=== PATIENT | female | born 1960 | race Caucasian/White ===

== ENCOUNTER 2019-01-01 12:16 | Inpatient (IN) ==
[2019-01-01] MEDS ORDERED: DUONEB (A & A) INH ONE (12:36)
[2019-01-01] MEDS ORDERED: SOLU-MEDROL IV ONE (12:36)
--- NOTE | 2019-01-01 12:52 | Diag Imaging Result Doc PS360 ---
EXAM: CHEST-2 VIEWS 01/01/2019 HISTORY: SOB TECHNIQUE: PA and lateral chest COMMENT: There is increased interstitial opacity bilaterally compared to 09/14/2018. The pulmonary vascularity is also apparently increased. There are bilateral pleural effusions. IMPRESSION: Pulmonary edema and effusions. Electronically signed by Mariusz Melgar 01/01/2019 12:50 PM
[2019-01-01] MEDS ORDERED: LASIX IV ONE (12:54)
[2019-01-01 13:00] LABS: BILIRUBIN URINE NEGATIVE (NEGATIVE); BLOOD URINE NEGATIVE (NEGATIVE); CLARITY CLEAR (CLEAR); COLOR YELLOW; KETONE URINE NEGATIVE (NEGATIVE); LEUKOCYTES URINE NEGATIVE (NEGATIVE); NITRITE URINE NEGATIVE (NEGATIVE); PROTEIN URINE NEGATIVE (NEGATIVE); SP GRAVITY URINE 1.005; UROBILINOGEN URINE NORMAL
[2019-01-01 13:03] LABS: BLOOD TYPE ARTERIAL; SAMPLE BLOOD
[2019-01-01 13:03] LABS: URINE EPITHELIAL CELLS >10 /HPF (<10); URINE SOURCE CLEAN CATCH
[2019-01-01 13:04] LABS: BE 5.2 mmoll (-3.0-3.0); HCO3-(ACT) 28.9 mmoll (20.0-26.0); METHB 0.8 % (0.0-1.5); O2HB 95.8 % (95.0-99.0); PO2(98.6) 100 mmHg (60-100); SAO2 99.3 % (95.0-100.0); pH(98.6) 7.39 (7.35-7.45)
[2019-01-01 13:06] LABS: ALLEN TEST YES; MODALITY CANNULA; PCO2(98.6) 52 mmHg (35-45)
[2019-01-01 14:17] LABS: AGAP 9; CHLORIDE 98 mmol/L (98-107); GLUCOSE 218 mg/dL (70-104); POTASSIUM 4.3 mmol/L (3.5-5.1); SODIUM 139 mmol/L (136-145); TCO2 32 mmol/L (25-35)
[2019-01-01 14:18] LABS: ALBUMIN 3.8 g/dL (3.5-5.0); ALKALINE PHOSPHATASE 72 U/L (32-104); BUN 6 mg/dL (8-22); CALCIUM 9.2 mg/dL (8.8-10.2); COSMO 282; CREATININE 0.5 mg/dL (0.5-0.9); ESTIMATED GFR > 60; GOT 18 U/L (10-30); GPT 15 U/L (10-36); MAGNESIUM 1.4 mg/dL (1.5-2.7); TOTAL PROTEIN 6.5 g/dL (6.3-8.3)
--- NOTE | 2019-01-01 14:37 | EKG Report ---
Test Performed on : 01/01/2019 1:58:19 PM Test Reason : sob Blood Pressure : / mmHG Vent. Rate : 082 BPM Atrial Rate : 082 BPM P-R Int : 174 ms QRS Dur : 086 ms QT Int : 382 ms P-R-T Axes : 035 000 047 degrees QTc Int : 446 ms Normal sinus rhythm. Possible Left atrial enlargement Low voltage QRS Borderline ECG When compared with ECG of 14-SEP-2018 11:36, QRS axis shifted right Criteria for Anterior infarct are no longer present Unconfirmed Result
[2019-01-01 15:13] LABS: BASO# 0.02 X1000 (0.0-0.2); BASO% 0.3 % (0.0-0.8); EOS# 0.29 X1000 (0.0-0.7); EOS% 4.8 % (0.0-10.0); HEMATOCRIT 40.1 % (37.0-47.0); HEMOGLOBIN 13.1 g/dL (12.0-16.0); IMM GRAN# 0.02 X1000 (0.0-0.04); IMM GRAN% 0.3 % (0.0-0.5); LYMPH# 1.27 X1000 (1.2-3.4); MCHC 32.7 g/dL (33-37); MCV 85.7 FL (81-99); MONO% 6.6 % (1.7-9.3); MPV 9.5 FL (7.4-10.4); NEUT# 4.04 X1000 (1.4-6.5); PLT 256 X1000 (130-400); RBC 4.68 XMIL (4.2-5.4); RDW 14.7 % (11.5-14.5); WBC 6.04 X1000 (4.8-10.8)
--- NOTE | 2019-01-01 16:18 | PROVIDER DOCUMENTATION ---
This chart was entered by Lola Park Scribe, acting as scribe for Vaughn Harper CRNP. HPI-Respiratory General - General Chief Complaint: Shortness of Breath Stated Complaint: SOB / COUGH / CONGESTION Time Seen by Provider: 01/01/19 12:20 Source: patient Allergies/Adverse Reactions: Patient Allergies Allergy/AdvReac Type Severity Reaction Status Date / Time doxycycline Allergy Intermediate NAUSEA/VOMI Verified 06/07/18 07:59 TING nitrofurantoin Allergy Intermediate HIVES Verified 06/07/18 07:59 macrocrystalline * [From Macrodantin] adhesive Allergy RASH Verified 06/07/18 07:59 Home Medications: Home Medication List Medication Instructions Recorded Confirmed Last Taken Type Gabapentin [Neurontin] 600 mg PO TID 04/29/12 09/14/18 01/03/18 History Meclizine HCl [Antivert] 25 mg PO BID 04/29/12 09/14/18 01/03/18 History Metformin [Glucophage] 1,000 mg PO BID 04/29/12 09/14/18 01/03/18 History Omeprazole [Prilosec] 40 mg PO DAILY 04/29/12 09/14/18 01/03/18 History Amitriptyline [Elavil] 50 mg PO HS 04/13/16 09/14/18 01/03/18 History Lorazepam 2 mg PO PRN PRN 05/18/17 09/14/18 Unknown History Diltiazem HCl [Cartia Xt] 300 mg PO DAILY 08/22/17 09/14/18 01/03/18 History Fenofibrate 160 mg PO DAILY 10/15/17 09/14/18 01/03/18 History Albuterol Sulfate [Albuterol 8.5 gm IH Q4-6H PRN PRN #1 01/03/18 09/14/18 Unknown Rx Sulfate Hfa] hfa.aer.ad Aspirin 81 mg PO DAILY 09/14/18 09/14/18 Unknown History Cholecalciferol (Vitamin D3) 5,000 unit PO DAILY 09/14/18 09/14/18 Unknown His tory [Vitamin D3] Fluticasone/Umeclidin/Vilanter 1 ea INHALATION DAILY 09/14/18 09/14/18 Unknown History [Trelegy Ellipta 100-62.5-25] Furosemide [Lasix] 40 mg PO PRN PRN 09/14/18 09/14/18 Unknown History Glipizide [Glipizide Xl] 5 mg PO DAILY 09/14/18 09/14/18 Unknown History Hydrocodone Bit/Acetaminophen 1 ea PO TID 09/14/18 09/14/18 Unknown History [Hydrocodon-Acetaminophn 10-325] Insulin Human NPH [Humulin N] 60 unit SUBQ WBREAKFAST 09/14/18 09/14/18 Unknown History LISINOpril [Prinivil] 20 mg PO DAILY 09/14/18 09/14/18 Unknown History Paroxetine [Paxil] 20 mg PO DAILY 09/14/18 09/14/18 Unknown History Azithromycin 250 mg PO DAILY #4 tab 09/16/18 Unknown Rx CefDINIR [Omnicef] 300 mg PO BID #10 cap 09/16/18 Unknown Rx Insulin Glargine,Hum.rec.anlog 18 unit SQ HS #0 09/16/18 09/14/18 Unknown Rx [Lantus Solostar] - History of Present Illness-Resp Nature of Presenting Problem: 58yof presents to ED cc SOB, cough and congestion for last 3 days that is getting worse even though she is on 2liters of home o2. Pt reports she called her son in law this morning b/c her o2 dropped to 78% going from bed to bathroom even on 2liters. Pt o2 was 93% on 2liters upon arrival in ED and then when she went to bathroom and got back to bed it was 85%. Pt has hx of COPD. Quality of Pain: reports: tightness Severity in ED: reports: moderate Onset/Duration: reports: 3 days ago Timing: reports: still present, getting worse Cough Quality/Degree: reports: moderate Episode Frequency: chronic episodes Current Respiratory Medication Therapy: Initiated see nurses note Modifying Factors: worse with: exertion, coughing Associated Symptoms: reports: cough, shortness of breath, short of breath, wheezing Similar Symptoms Previously?: Yes Recently seen or treated by another doctor?: No Review of Systems - Adult - REVIEW OF SYSTEMS - ADULT Constitutional: reports: see jessica CALDERA. denies: chills, fever Eyes: reports: no symptoms reported Ears, Nose, Mouth & Throat: reports: no symptoms reported Cardiovascular: reports: see HPI. denies: chest pain, irregular heart rate, palpitations Respiratory: reports: see HPI, cough, shortness of breath, wheezing, other (congestion). denies: hemoptysis, pleurisy Gastrointestinal: reports: no symptoms reported Genitourinary: reports: no symptoms reported Musculoskeletal: reports: no symptoms reported Integumentary: reports: no symptoms reported Neurological: reports: no symptoms reported Psychiatric: reports: no symptoms reported Endocrine: reports: no symptoms reported Hematologic/Lymphatic: reports: no symptoms reported Allergic/Immunologic: reports: no symptoms reported All Other Systems: Reviewed and Negative Past History - Adult - PAST MEDICAL HISTORY-ADULT Review of Records: reports: Nursing Assessment Review, Medications Reviewed, Social history reviewed & non-contributory. Major Childhood Illnesses: reports: denies history Cardiovascular: reports: CAD, HTN, hyperlipidemia, other (dystolic dysfunction) Respiratory: reports: asthma, COPD, pneumonia, sleep apnea Gastrointestinal: reports: denies history, GERD Obstetrical/Gynecological: reports: denies history Genitourinary: reports: kidney stones Musculoskeletal: reports: denies history, chronic pain, other (neuropathy) Neurological: reports: denies history Psychiatric: reports: anxiety, depression Endocrine/Immune: reports: anemia, Diabetes Other Conditions: reports: MRSA, other (vertigo) - PRIOR SURGERIES/PROCEDURES Surgical/Procedure History: reports: cholecystectomy, BTL, tonsillectomy, back/neck - PRIOR HOSPITALIZATIONS Prior Hospitalizations: reports: none - IMMUNIZATION STATUS Childhood Immunizations: See Nurse Assessment Flu Vaccine: See Nurse Assessment - FAMILY HISTORY Family History: reviewed, not pertinent Physical Exam-General - PHYSICAL EXAM-ADULT Initial Vital Signs Reviewed: Yes - CONSTITUTIONAL General Appearance: appears well, alert, mild distress - EYES Eyes: PERRL/EOMI, pink conjunctivae. negative: meningismus, pale conjunctivae, photophobia - HEAD, EARS, NOSE, MOUTH & THROAT HENMT: normocephalic/atraumatic, moist mucous membranes, normal ENT inspection. negative: angioedema, hearing deficit - NECK Neck: non-tender, full range of motion, supple, normal inspection. negative: C- spine tenderness - RESPIRATORY Respiratory: chest non-tender, no pleuratic chest pain, no respiratory distress, no accessory muscle use, decreased breath sounds (at bases, bilateral), wheezing (inspiratory adn expiratory). negative: lungs clear, normal breath sounds, crackles, rales, rhonchi, stridor - CARDIOVASCULAR Cardiovascular: normal peripheral pulses, regular rate, rhythm, no edema, no gallop, no JVD, no murmur. 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 negative: facial droop, focal weakness, motor weakness, sensory deficit - PSYCHIATRIC Psych/Mental Status: normal mood/affect, normal thought content, normal thought process, oriented x 3. negative: disoriented x 3, anxious, disheveled, depressed affect Progress - PLAN OF CARE/RESULTS Progress/Plan/Lab Results: Vital Signs - 8 hr 01/01/19 12:21 01/01/19 13:08 01/01/19 14:44 Temperature 98.3 F Pulse Rate 84 88 78 Respiratory Rate 18 22 18 Blood Pressure 118/66 121/69 O2 Sat by Pulse Oximetry 93 L 98 95 01/01/19 16:10 Temperature Pulse Rate 81 Respiratory Rate 19 Blood Pressure 148/69 O2 Sat by Pulse Oximetry 94 L Laboratory Results - last 24 hr 01/01/19 01/01/19 01/01/19 12:45 12:46 13:30 WBC RBC Hgb Hct MCV MCH MCHC RDW Std Deviation Plt Count MPV Immature Gran % (Auto) Neut % (Auto) Lymph % (Auto) [place] % (Auto) Eos % (Auto) Baso % (Auto) Immature Gran # (Auto) Neut # (Auto) Lymph # (Auto) Waldo # (Auto) Eos # (Auto) Baso # (Auto) Specimen Type ARTERIAL Sample Site R RADIAL pH 7.39 pCO2 52 H* pO2 100 HCO3 28.9 H Base Excess 5.2 H Oxyhemoglobin 95.8 ABG O2 Sat (Calculated) 19.0 ABG O2 Saturation 99.3 ABG Carboxyhemoglobin 2.70 H ABG Methemoglobin 0.8 Ron Test YES A-a O2 Difference 92.0 Total Hemoglobin 14.0 Liter Flow 4.0 Blood Gas Modality CANNULA FiO2 % 36.0 Sodium Potassium Chloride Carbon Dioxide Anion Gap BUN Creatinine Estimated GFR/1.73 m2 BUN/Creatinine Ratio Glucose Calculated Osmolality Calcium Phosphorus 3.0 Magnesium Total Bilirubin AST ALT Alkaline Phosphatase Creatine Kinase 52 Troponin T Kkx-V-[place] Pept Total Protein Albumin Globulin Albumin/Globulin Ratio Plasma Lactate Urine Source CLEAN CATCH Urine Color YELLOW Urine Clarity CLEAR Urine pH 8.0 Ur Specific [place] 1.005 Urine Protein NEGATIVE Urine Ketones NEGATIVE Urine Blood NEGATIVE Urine Nitrite NEGATIVE Urine Bilirubin NEGATIVE Urine Urobilinogen NORMAL Urine Microscopic RBC Not Reportable Urine WBC NEGATIVE Ur Epithelial Cells >10 A Urine Glucose TRACE(50 mg/dL) A 01/01/19 01/01/19 01/01/19 13:30 13:30 13:30 WBC 6.04 RBC 4.68 Hgb 13.1 Hct 40.1 MCV 85.7 MCH 28.0 MCHC 32.7 L RDW Std Deviation 14.7 H Plt Count 256 MPV 9.5 Immature Gran % (Auto) 0.3 Neut % (Auto) 67.0 Lymph % (Auto) 21.0 Waldo % (Auto) 6.6 Eos % (Auto) 4.8 Baso % (Auto) 0.3 Immature Gran # (Auto) 0.02 Neut # (Auto) 4.04 Lymph # (Auto) 1.27 Waldo # (Auto) 0.40 Eos # (Auto) 0.29 Baso # (Auto) 0.02 Specimen Type Sample Site pH pCO2 pO2 HCO3 Base Excess Oxyhemoglobin ABG O2 Sat (Calculated) ABG O2 Saturation ABG Carboxyhemoglobin ABG Methemoglobin Ron Test A-a O2 Difference Total Hemoglobin Liter Flow Blood Gas Modality FiO2 % Sodium 139 Potassium 4.3 Chloride 98 Carbon Dioxide 32 Anion Gap 9 BUN 6 L Creatinine 0.5 Estimated GFR/1.73 m2 > 60 BUN/Creatinine Ratio 12 Glucose 218 H Calculated Osmolality 282 Calcium 9.2 Phosphorus Magnesium 1.4 L Total Bilirubin 0.80 AST 18 ALT 15 Alkaline Phosphatase 72 Creatine Kinase Troponin T < 0.010 Tfw-G-[place] Pept Total Protein 6.5 Albumin 3.8 Globulin 3.0 Albumin/Globulin Ratio 1.0 Plasma Lactate Urine Source Urine Color Urine Clarity Urine pH Ur Specific [place] Urine Protein Urine Ketones Urine Blood Urine Nitrite Urine Bilirubin Urine Urobilinogen Urine Microscopic RBC Urine WBC Ur Epithelial Cells Urine Glucose 01/01/19 01/01/19 13:30 13:30 WBC RBC Hgb Hct MCV MCH MCHC RDW Std Deviation Plt Count MPV Immature Gran % (Auto) Neut % (Auto) Lymph % (Auto) [place] % (Auto) Eos % (Auto) Baso % (Auto) Immature Gran # (Auto) Neut # (Auto) Lymph # (Auto) Waldo # (Auto) Eos # (Auto) Baso # (Auto) Specimen Type Sample Site pH pCO2 pO2 HCO3 Base Excess Oxyhemoglobin ABG O2 Sat (Calculated) ABG O2 Saturation ABG Carboxyhemoglobin ABG Methemoglobin Ron Test A-a O2 Difference Total Hemoglobin Liter Flow Blood Gas Modality FiO2 % Sodium Potassium Chloride Carbon Dioxide Anion Gap BUN Creatinine Estimated GFR/1.73 m2 BUN/Creatinine Ratio Glucose Calculated Osmolality Calcium Phosphorus Magnesium Total Bilirubin AST ALT Alkaline Phosphatase Creatine Kinase Troponin T Ahk-I-Xbdutetyhzs Pept 365 H Total Protein Albumin Globulin Albumin/Globulin Ratio Plasma Lactate 1.7 Urine Source Urine Color Urine Clarity Urine pH Ur Specific [place] Urine Protein Urine Ketones Urine Blood Urine Nitrite Urine Bilirubin Urine Urobilinogen Urine Microscopic RBC Urine WBC Ur Epithelial Cells Urine Glucose Orders Category Date Time Status Saline Loc NOW Care 01/01/19 12:36 Active CHEST-2 VIEWS [RAD] Stat Exams 01/01/19 12:36 Completed ABG [RESP] Routine Lab 01/01/19 12:46 Completed BNP [PRO B-NATRIURETIC PEPTIDE] Stat Lab 01/01/19 13:30 Completed CBC WITH DIFF [HEME] Stat Lab 01/01/19 13:30 Completed CK PROFILE [SP CHEM] Stat Lab 01/01/19 13:30 Completed COMPREHENSIVE METABOLIC PANEL [CHEM] Stat Lab 01/01/19 13:30 Completed LACTATE, PLASMA [CHEM] Stat Lab 01/01/19 13:30 Completed MAGNESIUM [CHEM] Stat Lab 01/01/19 13:30 Completed PHOSPHORUS [CHEM] Stat Lab 01/01/19 13:30 Completed TROPONIN T Stat Lab 01/01/19 13:30 Completed UA NIMS W/REFLEX CULT PL [URINALYSIS] Stat Lab 01/01/19 12:45 Completed Albuterol 2.5MG/Ipratrop 0.5MG [Duoneb (A & A)] Med 01/01/19 12:36 Discontinued 3 ml INH NOW ONE Furosemide [Lasix] Med 01/01/19 12:54 Discontinued 60 mg IV NOW ONE Methylprednisolone Sod Succ [Solu-Medrol] Med 01/01/19 12:36 Discontinued 40 mg IV NOW ONE Aerosol Treatments Routine Oth 01/01/19 12:37 Active Aerosol Treatments Stat Oth 01/01/19 12:37 Active EKG [EKG] Stat Ther 01/01/19 12:36 Draft Transfer/Admit Order [TRANSFER] Routine Transfer 01/01/19 16:12 Ordered Result Diagrams: 01/01/19 13:30 01/01/19 13:30 - EKG 1 Time of EKG reading by physician:: 14:28 EKG Interpretation (*Must complete 3 of following elements*): Abnormal (possible left atrial enlargement) Rate: 82 Rhythm: normal sinus Energy: normal QRS: other (low voltage) - XRAY 1 XRAY: Bilateral XRAY Study: Chest Impression: See EMR Report (IMPRESSION: Pulmonary edema and effusions. Electro nically signed by Mariusz Melgar 01/01/2019 12:50 PM) - CONSULTS/PCP/HOSPITALIST Notification #1 *Consult/PCP/Hospitalist*: Dr Martinez Time Discussed: 16:12 Reason/Comments: COPD exacerbation Consult Disposition: Admit Departure - Departure Date of Disposition Decision: 01/01/19 Time of Disposition Decision: 16:17 DIAGNOSIS: COPD exacerbation Disposition: ADMITTED INPATIENT 09 Certified Medical Emergency: Emergent Condition: Critical Additional Freetext Instructions: ED Follow Up Instructions: You have been treated by a care provider in the Emergency Department. These instructions are being provided to you so you can have an understanding of how to care for yourself upon discharge. Upon discharge from the Emergency Department, you are responsible for making arrangements for follow-up care by a physician of your choice. Take all prescribed medications as directed. Return to the Emergency Department immediately for any new or worsening symptoms. You may call the Physician Referral phone number at [phone] to obtain a list of Physicians who are taking new patients. Referrals and Follow-Ups: Jazmyn Trivedi CRNP [Primary Care Provider] - - Critical Care Note This patient required my direct & personal management of CC.: No Attestation - Physician/ DEBBIE Attestation Patient care was provided by Advanced Practice Provider:: Yes Advanced Practice Provider:: Vaughn Harper Advanced Practice Provider documentation review:: The Mid-level provider documentation, treatment plan and medical decision making was reviewed by the physician who agrees with all treatment and medical decision making by the MLP. The physician spent face to face time with patient:: No Advanced Practice Provider documentation review:: Supervising physician onsite and consulted in the evaluation and care of this patient. The physician did not have a face to face encounter with the patient. This chart was documented by the indicated scribe, (Lola Park, [place]) and accurately reflects the services I performed and decisions made by , Vaughn Harper CRNP, as attested by the provider's signature.
[2019-01-01] MEDS ORDERED: MAGNESIUM SULFATE 2 GM/S.W.I. 2 GM/50 ML IVPB IV ONE (19:37)
[2019-01-01] MEDS ORDERED: DUONEB (A & A) INH PRN (19:42)
[2019-01-01] MEDS: ATIVAN PO SCH (20:18)
[2019-01-01] MEDS: ELAVIL PO SCH (20:18)
[2019-01-01] MEDS: NORCO-10 PO SCH (20:19)
[2019-01-01] MEDS: ANTIVERT PO SCH (20:19)
[2019-01-01] MEDS: SOLU-MEDROL IV SCH (20:19)
[2019-01-01] MEDS: PAXIL PO SCH (20:19)
[2019-01-01] MEDS: LASIX IV SCH (20:20)
[2019-01-01] MEDS: LANTUS INSULIN SUBQ SCH (20:20)
--- NOTE | 2019-01-01 20:44 | HISTORY AND PHYSICAL ---
CHIEF COMPLAINT: Shortness of breath. HISTORY OF PRESENT ILLNESS: This is a 58-year-old female with history of COPD. She may have cor pulmonale too, but she has been having worsening shortness of breath for the last several days, also increasing cough productive of green sputum. No fevers. Positive chills. She has had increase in swelling in her legs. She has baseline orthopnea. She does not sleep lying flat, so it is really hard to tell if that is a change. She reports chest tightness with her cough and shortness of breath and increasing congestion. There are no sick contacts clearly. At baseline, I do not know how ambulatory she is, and she is on 2 L continuously. Workup in the ER was consistent with at least a COPD exacerbation, but there was also concern over CHF exacerbation, because she had pulmonary vasculature, increased pleural effusions, pulmonary edema. The patient was evaluated and admitted for treatment. Reportedly also very hypoxic. Her saturations were 78%, even on her 2 L, and she only recovered to about 85%. PAST MEDICAL HISTORY: 1. Type 2 diabetes. 2. COPD. 3. Dyslipidemia. 4. Hypertension. 5. Hypertriglyceridemia. 6. Peripheral neuropathy. 7. Anxiety/depression. 8. GERD. PAST SURGICAL HISTORY: 1. She reports neck surgery. 2. Back surgery. 3. Tonsillectomy and adenoidectomy. 4. Cholecystectomy. 5. Left shoulder surgery. FAMILY HISTORY: Positive for hypertension and CAD in her father, at 70. He had lung cancer. Mother had CAD, at 62. Daughter had ovarian cancer, also in her 30s. Sister with breast cancer. One other brother with COPD. Sister also with COPD. ALLERGIES: Doxycycline, Macrobid, and adhesive tape. SOCIAL HISTORY: No smoking for the last 6 years. She was a 3 pack a day smoker for 10 years, probably at least a pack a day smoker for 20 years. I am going to say again, at least 30 pack year history of smoking. MEDICATIONS: 1. Elavil 50 at bedtime. 2. Fenofibrate 160 daily. 3. Glipizide 5 daily. 4. Glucophage 1 g b.i.d. 5. NPH 60 with breakfast. 6. [place] p.r.n. 7. Glargine 37 at night. 8. Lasix p.r.n. 9. Ativan 2 at bedtime. 10. Neurontin 600 t.i.d. 11. Paxil 20 at bedtime. 12. Prilosec 40 daily. 13. Lisinopril 20 daily. 14. Trilogy Ellipta 162.5/25 daily. 15. Vitamin D3 daily. 16. Zanaflex 4 t.i.d. 17. Albuterol. REVIEW OF SYSTEMS: Otherwise negative times a 10 point review of systems. PHYSICAL EXAMINATION: VITAL SIGNS: Blood pressure is 137/57, heart rate of 85, respiratory rate is 21, temperature 98.6 degrees, 100% on 3.5 L. GENERAL: Obese female in moderate respiratory distress, sitting up in chair. EYES: Pupils equal, round, reactive to light. She has glasses, corrective lenses on. Sclerae are anicteric. Extraocular movements are intact. EARS, NOSE, THROAT: She has moist mucous membranes. Oropharynx seems somewhat injected, but I could not visualize it very well. CARDIOVASCULAR: Regular rate and rhythm. Soft S1, S2. PULMONARY: Diminished throughout. There is faint wheezing throughout all lung poon. I do not appreciate rales, per se. Anteriorly, she has more wheezing. GI: Soft, nontender, protuberant. Bowel sounds positive. NEUROLOGIC: Cranial nerves 2 through 12 are grossly intact. SKIN: Clean, dry, intact. MUSCULOSKELETAL: 4/5 in all 4 extremities. LYMPHATIC: She has pitting edema, at least 1+, in feet and ankles bilaterally. LABORATORY DATA: White count is 6. PH 7.39, pCO2 52, PaO2 100. That is on 36%. Magnesium was 1.4, glucose 218. ASSESSMENT: This is a 58-year-old female with severe chronic obstructive pulmonary disease, diabetes, no clear heart failure, although there is report previously of diastolic dysfunction. Her echocardiogram was in February per Dr. Mustafa, and she had a myocardial perfusion scan. In any case, she has evidence of volume overload, pulmonary edema, multiple issues here. Her last echocardiogram was in February 2018 and she had grade 1 diastolic dysfunction with an intact ejection fraction. No clear pulmonary hypertension. 1. Acute respiratory failure, associated with chronic obstructive pulmonary disease and possible underlying heart failure, cor pulmonale. 2. We will treat chronic obstructive pulmonary disease exacerbation with breathing treatments, steroids, and follow clinically. 3. Pulmonary edema, may be primary, cardiomyopathy, or cor pulmonale. We will continue diuretics, check an echocardiogram, repeat serial enzymes, maintain on telemetry. 4. Type 2 diabetes. Continue Glucophage and insulin, follow blood sugars, and monitor closely. 5. Hypertension. Continue regular medications and follow. 6. Continue deep venous thrombosis and gastrointestinal prophylaxis. 7. Disposition pending clinical improvement. Refer this to Jazmyn Niño associated with Dr. Dong in [place]. cc: MD Jazmyn Kay
[2019-01-01] MEDS: ZANAFLEX PO SCH (20:54)
[2019-01-01] MEDS ORDERED: HUMULIN R SUBQ SCH (21:00)
[2019-01-01 21:57] LABS: BILIRUBIN URINE NEGATIVE (NEGATIVE); BLOOD URINE NEGATIVE (NEGATIVE); CLARITY CLEAR (CLEAR); KETONE URINE TRACE mg/dL (NEGATIVE); LEUKOCYTES URINE NEGATIVE (NEGATIVE); NITRITE URINE NEGATIVE (NEGATIVE); PROTEIN URINE NEGATIVE (NEGATIVE); SP GRAVITY URINE 1.005; UROBILINOGEN URINE NORMAL
[2019-01-01 22:07] LABS: URINE BACTERIA 2+ /HFP; URINE CAST NONE SEEN /LPF; URINE CRYSTAL NONE SEEN /HPF; URINE EPITHELIAL CELLS <10 /HPF (<10); URINE WBC NS /HPF (<10); URINE YEAST NONE SEEN /HPF
[2019-01-01 22:08] LABS: COLOR STRAW; URINE SOURCE CATH
[2019-01-01] MEDS: HUMULIN R (PARKWAY) SUBQ SCH (23:06)
[2019-01-01] MEDS: DUONEB (A & A) INH SCH (23:20)
[2019-01-02] MEDS: DUONEB (A & A) INH SCH ×6 (03:11→22:32)
[2019-01-02] MEDS: LOVENOX SUBQ SCH (06:21)
[2019-01-02] MEDS: PRILOSEC PO SCH (06:21)
[2019-01-02] MEDS: SOLU-MEDROL IV SCH ×3 (06:22→20:21)
[2019-01-02] MEDS: LASIX IV SCH ×3 (06:22→20:21)
[2019-01-02] MEDS: HUMULIN R (PARKWAY) SUBQ SCH ×4 (06:23→20:42)
[2019-01-02 07:30] LABS: AGAP 15; BUN 10 mg/dL (8-22); CALCIUM 9.5 mg/dL (8.8-10.2); CHLORIDE 91 mmol/L (98-107); COSMO 278; CREATININE 0.4 mg/dL (0.5-0.9); ESTIMATED GFR > 60; GLUCOSE 294 mg/dL (70-104); POTASSIUM 3.9 mmol/L (3.5-5.1); SODIUM 134 mmol/L (136-145); TCO2 29 mmol/L (25-35)
[2019-01-02 07:46] LABS: BASO# 0.01 X1000 (0.0-0.2); BASO% 0.1 % (0.0-0.8); EOS# 0.01 X1000 (0.0-0.7); EOS% 0.1 % (0.0-10.0); HEMATOCRIT 43.6 % (37.0-47.0); HEMOGLOBIN 14.4 g/dL (12.0-16.0); IMM GRAN# 0.03 X1000 (0.0-0.04); IMM GRAN% 0.3 % (0.0-0.5); LYMPH# 0.96 X1000 (1.2-3.4); LYMPH% 9.7 % (20.5-51.1); MCH 27.3 PG (27-31); MCV 82.6 FL (81-99); MONO# 0.21 X1000 (0.11-0.59); MONO% 2.1 % (1.7-9.3); MPV 9.1 FL (7.4-10.4); NEUT# 8.63 X1000 (1.4-6.5); NEUT% 87.7 % (42.2-75.2); PLT 310 X1000 (130-400); RBC 5.28 XMIL (4.2-5.4); RDW 14.4 % (11.5-14.5); WBC 9.85 X1000 (4.8-10.8)
[2019-01-02 08:15] LABS: HEMOGLOBIN A1C 10.4 % (4.8-6.0)
[2019-01-02] MEDS: NORCO-10 PO SCH ×3 (08:29→20:19)
[2019-01-02] MEDS: HUMULIN N INSULIN (PARKWAY) SUBQ SCH (08:29)
[2019-01-02] MEDS: GLUCOPHAGE PO SCH ×2 (08:29→16:39)
[2019-01-02] MEDS: ZANAFLEX PO SCH ×3 (08:30→20:19)
[2019-01-02] MEDS: ASPIRIN PO SCH (08:30)
[2019-01-02] MEDS: CARDIZEM CD PO SCH ×2 (08:30→08:31)
[2019-01-02] MEDS: NEURONTIN PO SCH ×3 (08:31→20:31)
[2019-01-02] MEDS: GLUCOTROL XL PO SCH (08:31)
[2019-01-02] MEDS: VITAMIN D PO SCH (08:32)
[2019-01-02] MEDS: TRICOR PO SCH (08:32)
[2019-01-02] MEDS: PATIENT'S OWN MED INH SCH (08:32)
[2019-01-02] MEDS: PRINIVIL PO SCH (08:32)
[2019-01-02 08:42] LABS: LYMPHS 10 % (21-51); SEGS 90 % (42-75)
[2019-01-02] MEDS ORDERED: CARDIZEM CD PO SCH (09:00)
--- NOTE | 2019-01-02 15:07 | ECHO REPORT ---
ORDER DATE: 01/02/2019 INTERPRETING PHYSICIAN: Dr. Marcos Jacobson. ECHOCARDIOGRAPHIC MEASUREMENTS: 1. Interventricular septum: 1.2 cm. 2. Left ventricular posterior wall: 1.1 cm. 3. Diastolic diameter: 5.3 cm. 4. Left atrium: 4.3 cm. 5. Aorta: 3 cm. SUMMARY OF THE 2-DIMENSIONAL IMAGIN. Technically suboptimal study. 2. Pulmonic valve not well visualized. 3. Aortic valve leaflets are trileaflet. 4. Mitral valve was normal. 5. Tricuspid valve was normal. 6. There is mild mitral regurgitation. 7. Mild tricuspid regurgitation. Peak velocity across the tricuspid valve less than 2 m/sec. 8. Peak velocity across the aortic valve less than 2 m/sec. There is no aortic stenosis or regurgitation. 9. Endocardium not well visualized in all views. 10. Normal left ventricular cavity size. Estimated ejection fraction of 55-60%. 11. Anterior echo-free space suggestive of pericardial fat pad noted. 12. There is no pericardial effusion or obvious intracardiac mass or thrombus seen. cc: MD Gurmeet Watters MD
--- NOTE | 2019-01-02 20:14 | PROGRESS NOTE ---
DATE: 01/02/2019 SUBJECTIVE: Patient notes she is still having some shortness of breath and coughing. Still having dyspnea on exertion. Denies any true fevers or chills. States that her lower extremity swelling is also improving. PHYSICAL EXAMINATION: Vital Signs: Temperature 98, pulse 85, respiratory rate 18, BP 121/52. General: Patient is pleasant. She is in mild respiratory distress. HEENT: Normocephalic. Neck: Supple. Cardiovascular: Regular rate. Chest: Improved lung sounds. Decreased wheezing. Abdomen: Soft, nondistended. Extremities: Moves all extremities. Less lower extremity edema than she had previously. Neurologic: No focal changes. ASSESSMENT: 1. Acute respiratory failure. 2. Chronic obstructive pulmonary disease with exacerbation. 3. Pulmonary edema. 4. Hypertension. 5. Diabetes type 2. PLAN: 1. Will continue patient in the hospital. 2. Will continue to wean her Solu-Medrol as tolerated. 3. Hopefully, home over the next few days. cc: Osvaldo Serrato MD
[2019-01-02] MEDS: ATIVAN PO SCH (20:19)
[2019-01-02] MEDS: PAXIL PO SCH (20:19)
[2019-01-02] MEDS: LANTUS INSULIN SUBQ SCH (20:19)
[2019-01-02] MEDS: ANTIVERT PO SCH (20:20)
[2019-01-02] MEDS: ELAVIL PO SCH (20:20)
[2019-01-03] MEDS: DUONEB (A & A) INH SCH ×6 (03:25→23:07)
[2019-01-03] MEDS: LOVENOX SUBQ SCH (07:00)
[2019-01-03] MEDS: PRILOSEC PO SCH (07:01)
[2019-01-03] MEDS: HUMULIN R (PARKWAY) SUBQ SCH ×4 (07:01→22:25)
[2019-01-03] MEDS: PATIENT'S OWN MED INH SCH (07:52)
[2019-01-03] MEDS: SOLU-MEDROL IV SCH ×2 (07:52→08:08)
[2019-01-03] MEDS: TRICOR PO SCH ×2 (07:53→08:08)
[2019-01-03] MEDS: GLUCOPHAGE PO SCH ×2 (07:53→16:26)
[2019-01-03] MEDS: PRINIVIL PO SCH ×2 (07:53→08:08)
[2019-01-03] MEDS: LASIX IV SCH ×2 (07:53→08:08)
[2019-01-03] MEDS: NEURONTIN PO SCH ×4 (07:53→16:25)
[2019-01-03] MEDS: ZANAFLEX PO SCH ×3 (07:53→22:24)
[2019-01-03] MEDS: ASPIRIN PO SCH ×2 (07:53→08:06)
[2019-01-03] MEDS: NORCO-10 PO SCH ×3 (07:54→22:24)
[2019-01-03] MEDS: CARDIZEM CD PO SCH ×5 (07:54→08:07)
[2019-01-03] MEDS: GLUCOTROL XL PO SCH ×2 (07:55→08:07)
[2019-01-03] MEDS: HUMULIN N INSULIN (PARKWAY) SUBQ SCH (07:55)
[2019-01-03] MEDS: VITAMIN D PO SCH (08:08)
[2019-01-03] MEDS ORDERED: LANTUS INSULIN SUBQ ONE (11:31)
[2019-01-03] MEDS ORDERED: NS 1,000 ML IV SCH (17:30)
[2019-01-03] MEDS ORDERED: NS 1,000 ML IV ONE (19:00)
--- NOTE | 2019-01-03 20:07 | PROGRESS NOTE ---
DATE: 01/03/2019 SUBJECTIVE: Patient has no complaints. Notes that she is starting to feel a little bit better, although she does have some lightheaded episodes. Denies any fevers or chills. OBJECTIVE: Vital Signs: Temperature is 98.6 degrees, pulse 69, BP 95/40 to 88 systolic. General: Patient is awake, alert. She is currently in no respiratory distress. Very pleasant to talk with. HEENT: Normocephalic. Neck: Supple. Cardiovascular: Regular rate. No murmurs. Chest: Clear, nonlabored. No wheezing. Abdomen: Soft, obese, nondistended. Extremities: Moves all extremities. ASSESSMENT: 1. Acute respiratory failure with chronic obstructive pulmonary disease exacerbation. 2. Chronic hypoxic respiratory failure. 3. Chronic lower extremity edema. 4. Hypotension. 5. Type 2 diabetes. 6. Others. PLAN: 1. We will decrease her Solu-Medrol. 2. Her blood sugars have been elevated secondary to her Solu-Medrol, so we are going to decrease this and hopefully stop this today. 3. Her blood pressure has been low. Going to hold her lisinopril and certainly may have to decrease her Cardizem as well if her blood pressures remain low. 4. We will continue her in the hospital until her blood sugar and blood pressures are more stabilized. cc: Osvaldo Serrato MD
[2019-01-03] MEDS: ELAVIL PO SCH (22:23)
[2019-01-03] MEDS: ANTIVERT PO SCH (22:23)
[2019-01-03] MEDS: ATIVAN PO SCH (22:24)
[2019-01-03] MEDS: PAXIL PO SCH (22:24)
[2019-01-03] MEDS: LANTUS INSULIN SUBQ SCH (22:25)
[2019-01-04] MEDS: LOVENOX SUBQ SCH (06:11)
[2019-01-04] MEDS: PRILOSEC PO SCH (06:11)
[2019-01-04] MEDS: DUONEB (A & A) INH SCH ×6 (06:13→23:06)
[2019-01-04] MEDS: HUMULIN R (PARKWAY) SUBQ SCH ×4 (06:39→20:38)
[2019-01-04] MEDS: HUMULIN N INSULIN (PARKWAY) SUBQ SCH (07:48)
[2019-01-04] MEDS: PATIENT'S OWN MED INH SCH (07:48)
[2019-01-04] MEDS: GLUCOPHAGE PO SCH ×2 (07:48→16:26)
[2019-01-04] MEDS: NORCO-10 PO SCH ×3 (07:48→20:37)
[2019-01-04] MEDS: GLUCOTROL XL PO SCH ×2 (07:49→08:03)
[2019-01-04] MEDS: ZANAFLEX PO SCH ×3 (07:49→20:37)
[2019-01-04] MEDS: TRICOR PO SCH ×2 (07:49→08:04)
[2019-01-04] MEDS: LASIX IV SCH ×2 (07:49→08:03)
[2019-01-04] MEDS: ASPIRIN PO SCH ×2 (07:49→08:03)
[2019-01-04] MEDS: VITAMIN D PO SCH ×2 (07:49→08:04)
[2019-01-04] MEDS: NEURONTIN PO SCH ×4 (07:49→16:26)
[2019-01-04] MEDS: MIRALAX PO SCH ×2 (09:52→20:36)
--- NOTE | 2019-01-04 19:47 | PROGRESS NOTE ---
DATE: 01/04/2019 SUBJECTIVE: Patient notes that she is feeling okay. Denies any chest pain, palpitations. Denies any fevers or chills. Denies any headaches or blurred vision. PHYSICAL EXAMINATION: Degrees, pulse 69, respiratory 18, BP 98/48.General: Patient is awake, alert, pleasant, obese female who is in no distress currently. HEENT: Normocephalic. Neck: Supple. Cardiovascular: Regular rate. Chest: Clear, nonlabored. Abdomen: Soft, obese, nondistended. Extremities: Positive edema bilateral lower extremities. ASSESSMENT: 1. Hypotension. 2. Atrial fibrillation, currently rate controlled. 3. Diabetes. 4. Obesity. 5. Others. PLAN: We will continue patient in the hospital currently. We will stop her lisinopril and at this point, we will have to hold her Cardizem due to her hypotension. We will continue to follow. Blood sugars are elevated. Hopefully, stopping her steroids to will improve her blood sugar control as well. Further orders as needed. cc: Osvaldo Serrato MD
[2019-01-04] MEDS: ELAVIL PO SCH (20:37)
[2019-01-04] MEDS: PAXIL PO SCH (20:37)
[2019-01-04] MEDS: ANTIVERT PO SCH (20:37)
[2019-01-04] MEDS: ATIVAN PO SCH (20:37)
[2019-01-04] MEDS: LANTUS INSULIN SUBQ SCH (20:39)
[2019-01-05] MEDS: DUONEB (A & A) INH SCH ×6 (04:23→23:12)
[2019-01-05] MEDS: LOVENOX SUBQ SCH (05:57)
[2019-01-05] MEDS: PRILOSEC PO SCH ×2 (05:58→07:41)
[2019-01-05] MEDS: HUMULIN R (PARKWAY) SUBQ SCH ×4 (06:00→20:23)
[2019-01-05] MEDS: PATIENT'S OWN MED INH SCH (10:11)
[2019-01-05] MEDS: LASIX IV SCH (10:12)
[2019-01-05] MEDS: NORCO-10 PO SCH ×3 (10:12→20:21)
[2019-01-05] MEDS: NEURONTIN PO SCH ×3 (10:12→16:58)
[2019-01-05] MEDS: GLUCOPHAGE PO SCH ×2 (10:12→16:58)
[2019-01-05] MEDS: TRICOR PO SCH (10:13)
[2019-01-05] MEDS: GLUCOTROL XL PO SCH (10:13)
[2019-01-05] MEDS: ASPIRIN PO SCH (10:13)
[2019-01-05] MEDS: ZANAFLEX PO SCH ×3 (10:13→20:22)
[2019-01-05] MEDS: MIRALAX PO SCH ×2 (10:14→20:23)
[2019-01-05] MEDS: HUMULIN N INSULIN (PARKWAY) SUBQ SCH (10:15)
[2019-01-05] MEDS: CARDIZEM CD PO SCH (10:19)
[2019-01-05] MEDS: VITAMIN D PO SCH (10:21)
[2019-01-05] MEDS: ATIVAN PO SCH (20:20)
[2019-01-05] MEDS: ELAVIL PO SCH (20:21)
[2019-01-05] MEDS: ANTIVERT PO SCH (20:22)
[2019-01-05] MEDS: LANTUS INSULIN SUBQ SCH (20:23)
[2019-01-05] MEDS: PAXIL PO SCH (20:46)
--- NOTE | 2019-01-05 21:04 | PROGRESS NOTE ---
DATE: 01/05/2019 SUBJECTIVE: Patient notes that she is feeling a lot better. Denies any current palpitations. Still having shortness of breath, but notes this is chronic. Still having some mild swelling in lower extremities. She is eating better. PHYSICAL EXAMINATION: Patient is afebrile. Temperature 97 degrees, pulse 90, BP is 133/54. She is in no current respiratory distress, pleasant to talk with.HEENT: Normocephalic. Neck: Supple. Cardiovascular: Rate controlled. No murmurs. Chest: Decreased breath sounds mainly secondary to body habitus. No wheezing. No crackles. Extremities: Moves all extremities. She has trace edema. Neurologic: No focal changes. ASSESSMENT: 1. Diabetes. Blood sugars are much better controlled since stopping her IV Solu-Medrol. 2. Atrial fibrillation. Currently is still rate controlled. We have decreased her Cardizem from 300 down to 180 secondary to hypotension and bradycardia. Thankfully, she currently is having no issues with tachycardia with the decreased dose. 3. Hypotension. Blood pressures are much better after decreasing her Cardizem as well as after holding her lisinopril. PLAN: Overall, patient is stable and improved. We will not discharge her home today as we have held both of her blood pressure medicines, increased her diabetic medications, and decreased her Cardizem. If she remains stable, we will discharge her home in the a.m.. cc: Osvaldo Serrato MD
[2019-01-06] MEDS: DUONEB (A & A) INH SCH ×4 (03:21→15:46)
[2019-01-06] MEDS: HUMULIN R (PARKWAY) SUBQ SCH ×2 (06:10→11:29)
[2019-01-06] MEDS: PRILOSEC PO SCH (06:19)
[2019-01-06] MEDS: LOVENOX SUBQ SCH (06:19)
[2019-01-06] MEDS: GLUCOTROL XL PO SCH (09:26)
[2019-01-06] MEDS: ZANAFLEX PO SCH ×2 (09:26→13:58)
[2019-01-06] MEDS: LASIX IV SCH (09:27)
[2019-01-06] MEDS: GLUCOPHAGE PO SCH (09:27)
[2019-01-06] MEDS: ASPIRIN PO SCH (09:27)
[2019-01-06] MEDS: CARDIZEM CD PO SCH ×2 (09:27)
[2019-01-06] MEDS: NEURONTIN PO SCH ×2 (09:27→13:57)
[2019-01-06] MEDS: HUMULIN N INSULIN (PARKWAY) SUBQ SCH (09:28)
[2019-01-06] MEDS: NORCO-10 PO SCH ×2 (09:31→13:57)
[2019-01-06] MEDS: MIRALAX PO SCH (09:40)
[2019-01-06] MEDS: VITAMIN D PO SCH (11:00)
[2019-01-06] MEDS: TRICOR PO SCH (11:29)
[2019-01-06] MEDS: PATIENT'S OWN MED INH SCH (11:29)
[2019-01-06 12:30] VITALS: BP 119/57
[2019-01-06 12:35] LABS: HEMATOCRIT 44.9 % (37.0-47.0); HEMOGLOBIN 14.8 g/dL (12.0-16.0); RBC 5.28 XMIL (4.2-5.4); RDW 14.9 % (11.5-14.5); WBC 10.85 X1000 (4.8-10.8)
[2019-01-06 12:59] LABS: AGAP 10; ALKALINE PHOSPHATASE 72 U/L (32-104); BUN 19 mg/dL (8-22); CALCIUM 9.6 mg/dL (8.8-10.2); CHLORIDE 94 mmol/L (98-107); COSMO 284; CREATININE 0.6 mg/dL (0.5-0.9); ESTIMATED GFR > 60; GLUCOSE 237 mg/dL (70-104); GOT 27 U/L (10-30); GPT 22 U/L (10-36); MAGNESIUM 1.4 mg/dL (1.5-2.7); POTASSIUM 4.1 mmol/L (3.5-5.1); SODIUM 137 mmol/L (136-145); TCO2 33 mmol/L (25-35); TOTAL PROTEIN 6.9 g/dL (6.3-8.3)
--- NOTE | 2019-01-06 14:11 | Diag Imaging Result Doc PS360 ---
CT ABD/PELVIS W/IV CONT ONLY - 01/06/2019 INDICATION: stone search/hematuria COMPARISON: 10/15/2017 FINDINGS: There is COPD in the lung bases. There is severe fatty change of the liver. Stable cholecystectomy clips. Otherwise all abdominal organs are normal. No radiodense renal stones. No hydronephrosis or hydroureter. No bowel obstruction or inflammation. Urinary bladder, uterus, and rectum are normal. There are moderate degenerative changes of the spine. No acute or suspicious bony lesion. IMPRESSION: Hepatic steatosis. No acute disease. This exam was performed using automated exposure control, adjustment of mA or kV according to patient size, and/or use of iterative reconstruction technique Electronically signed by Victorino Butt 01/06/2019 2:08 PM
--- NOTE | 2019-01-06 19:36 | DISCHARGE SUMMARY ---
ADMISSION DATE: 01/01/2019 DISCHARGE DATE: 01/06/2019 DISCHARGE DIAGNOSES: 1. Hematuria. The patient has had issues with hematuria. It improved, and seems to be having current issue. 2. Hypotension, resolved. 3. Atrial fibrillation, stable. 4. Type 2 diabetes. 5. Acute respiratory failure. 6. Pulmonary edema resolved. 7. Obesity. 8. Chronic neuropathy. CONSULTATIONS: None. PROCEDURES: None. BRIEF HOSPITAL COURSE: The patient is a 58-year-old female who was admitted on 01/01 with a COPD exacerbation as well as increased pedal and pulmonary edema. She was treated with Lasix, oxygen, antibiotics and breathing treatments. She did have some trouble during the hospital, with her blood pressure dropping into the low to upper 90s. Her heart rate has thankfully remained stable. We stopped her lisinopril and did not restart this back. We decreased her Cardizem from 300 to 180. She tolerated it from a blood pressure standpoint. Blood pressure increased back to the 130s, although her heart rate also increased into the upper 90s. We watched her 1 more day and restarted her back on her 300 of Cardizem. Thankfully that improved both her blood pressures and her heart rate. On discharge she is awake, alert. She is in no distress. Notes that she is feeling much better. DISPOSITION: The patient be discharged home on Cardizem 180. She will not restart her lisinopril 20 mg. Otherwise will continue all of her medications as listed on her HPI dated 01/01. Greater than 30 minutes was spent in total care. The patient is able to ambulate without any difficulties. cc: Osvaldo Serrato MD
== END 2019-01-06 17:45 | disposition home or self-care (01) | DRG 190 ==
LOC: P.ED 12:16 → P.MEDSURG 17:57 → SUATTDRO 17:57
PROVIDERS: ATTEND Family Medicine
CPT/HCPCS: 71020; 71046; 74177; 80048; 80053; 81001; 82550; 82805; 82947; 82948; 83036; 83605; 83735; 83880; 84100; 84443; 84484; 85025; 85027; 87088; 93005; 93306; 94640; 94761; A9270; J1650; J1815; J1940; J2920; J2930; J3475; J7030; Q9967; XXXXX

== ENCOUNTER 2019-01-26 04:55 | Inpatient (IN) ==
[2019-01-26] MEDS ORDERED: NS 1,000 ML IV ONE ×2 (05:23→05:45)
[2019-01-26] MEDS ORDERED: TYLENOL PO ONE (05:23)
[2019-01-26] MEDS ORDERED: MORPHINE IV ONE (05:45)
[2019-01-26] MEDS ORDERED: ROCEPHIN 1 GM in NS 50 ML IV ONE (05:45)
[2019-01-26] MEDS ORDERED: ZOFRAN IV ONE (05:45)
[2019-01-26] MEDS ORDERED: VANCOMYCIN 1 GM/NS 1 GM/250 ML IVPB IV ONE (05:45)
[2019-01-26] MEDS ORDERED: DUONEB (A & A) INH ONE (05:46)
--- NOTE | 2019-01-26 05:54 | PROVIDER DOCUMENTATION ---
HPI-Fever - General Chief Complaint: Fever Stated Complaint: FEVER 103 @ 4:30 Time Seen by Provider: 01/26/19 05:15 Source: patient, family () Allergies/Adverse Reactions: Patient Allergies Allergy/AdvReac Type Severity Reaction Status Date / Time doxycycline Allergy Intermediate NAUSEA/VOMI Verified 01/26/19 05:13 TING nitrofurantoin Allergy Intermediate HIVES Verified 01/26/19 05:13 macrocrystalline * [From Macrodantin] adhesive Allergy RASH Verified 01/26/19 05:13 NSAIDS (Non-Steroidal AdvReac Unknown Verified 01/26/19 05:13 Anti-Inflamma Home Medications: Home Medication List Medication Instructions Recorded Confirmed Last Taken Type Gabapentin [Neurontin] 600 mg PO TID 04/29/12 01/01/19 01/03/18 History Meclizine HCl [Antivert] 25 mg PO HS 04/29/12 01/01/19 01/03/18 History Metformin [Glucophage] 1,000 mg PO BID 04/29/12 01/01/19 01/03/18 History Omeprazole [Prilosec] 40 mg PO DAILY 04/29/12 01/01/19 01/03/18 History Amitriptyline [Elavil] 50 mg PO HS 04/13/16 01/01/19 01/03/18 History Lorazepam 2 mg PO HS 05/18/17 01/01/19 Unknown History Fenofibrate 160 mg PO DAILY 10/15/17 01/01/19 01/03/18 History Albuterol Sulfate [Albuterol 8.5 gm IH Q4-6H PRN PRN #1 01/03/18 01/01/19 Unknown Rx Sulfate Hfa] hfa.aer.ad Aspirin 81 mg PO DAILY 09/14/18 01/01/19 Unknown History Cholecalciferol (Vitamin D3) 5,000 unit PO DAILY 09/14/18 01/01/19 Unknown History [Vitamin D3] Furosemide [Lasix] 40 mg PO PRN PRN 09/14/18 01/01/19 Unknown History Glipizide [Glipizide Xl] 5 mg PO DAILY 09/14/18 01/01/19 Unknown History Hydrocodone Bit/Acetaminophen 1 ea PO TID 09/14/18 01/01/19 Unknown History [Hydrocodon-Acetaminophn 10-325] Insulin Human NPH [Humulin N] 60 unit SUBQ WBREAKFAST 09/14/18 01/01/19 01/01/19 History LISINOpril [Prinivil] 20 mg PO DAILY 09/14/18 01/01/19 Unknown History Paroxetine [Paxil] 20 mg PO HS 09/14/18 01/01/19 Unknown History Diltiazem HCl [Cartia Xt] 300 mg PO DAILY 01/01/19 01/01/19 Unknown History Fluticasone/Umeclidin/Vilanter 1 puff INH DAILY 01/01/19 01/01/19 Unknown History [Trelegy Ellipta 100-62.5-25] Insulin Glargine,Hum.rec.anlog 37 unit SQ HS 01/01/19 01/01/19 Unknown History [Lantus Solostar] Tizanidine HCl [Zanaflex] 4 mg PO TID 01/01/19 01/01/19 Unknown History Polyethylene Glycol 3350 [Miralax] 17 gm PO BID powder, packet 01/06/19 Unknown Rx - History of Present Illness-Fever Nature of Presenting Problem: Brought by POV for acute onset of fever, chills, 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 SHe has a history of IDDM, COPD, CHF, and a recent UTI requiring 2 rounds of antibotics this month already. Also recently admitted a month ago for CHF exacerbation, had indwelling moreno cathether at that time. states is seems like her lower abdomen was hurting Fever Severity/Quality: reports: greater than 102 F Onset/Duration: reports: abrupt, 1 hour ago Timing: reports: still present Severity: reports: moderate Context: reports: decreased mental status, confusion, other (as in HPI above) Recent Illness?: reports: UTI Fever Therapy SEISMOGRAPH OPERATOR: Initiated none Cognitive Baseline: alert, oriented x3 Modifying Factors: improves with: nothing Associated Symptoms: reports: anxiety, fever/chills, shortness of breath, trouble walking Similar Symptoms Previously?: No Recently seen or treated by another doctor?: Yes - Glascow Coma Score Best Eye Response (Alan): (4) open spontaneously Best Verbal Response (Alan): (4) confused conversation Best Motor Response (Ferguson): (6) obeys commands Alan Total: 14 Review of Systems - Adult - REVIEW OF SYSTEMS - ADULT Constitutional: reports: see HPI, chills, fever Eyes: reports: no symptoms reported Ears, Nose, Mouth & Throat: reports: no symptoms reported Cardiovascular: reports: no symptoms reported Respiratory: reports: chronic cough, cough, dyspnea on exertion, shortness of breath, wheezing. denies: excessive sputum production, hemoptysis, pleurisy Gastrointestinal: reports: abdominal pain (lower), constipation, diarrhea. denies: difficulty swallowing, nausea, poor appetite, vomiting Genitourinary: reports: no symptoms reported Musculoskeletal: reports: no symptoms reported Integumentary: reports: no symptoms reported Neurological: reports: see HPI, tremors Psychiatric: reports: no symptoms reported Endocrine: reports: no symptoms reported Hematologic/Lymphatic: reports: no symptoms reported Allergic/Immunologic: reports: no symptoms reported All Other Systems: Reviewed and Negative Past History - Adult - PAST MEDICAL HISTORY-ADULT Review of Records: reports: Old Records Reviewed, Nursing Assessment Review, Medications Reviewed, Social history reviewed & non-contributory. Major Childhood Illnesses: reports: denies history Cardiovascular: reports: CAD, HTN, hyperlipidemia, other (dystolic dysfunction) Respiratory: reports: asthma, COPD, pneumonia, sleep apnea Gastrointestinal: reports: denies history, GERD Obstetrical/Gynecological: reports: denies history Genitourinary: reports: kidney stones Musculoskeletal: reports: denies history, chronic pain, other (neuropathy) Neurological: reports: denies history Psychiatric: reports: anxiety, depression Endocrine/Immune: reports: anemia, Diabetes Other Conditions: reports: MRSA, other (vertigo) - PRIOR SURGERIES/PROCEDURES Surgical/Procedure History: reports: cholecystectomy, BTL, tonsillectomy, back/neck - PRIOR HOSPITALIZATIONS Prior Hospitalizations: reports: none - IMMUNIZATION STATUS Childhood Immunizations: See Nurse Assessment Flu Vaccine: See Nurse Assessment - FAMILY HISTORY Family History: reviewed, not pertinent - SOCIAL HISTORY Smoking: quit greater than 1 year Substance Use: none/never Alcohol Use Frequency: rarely Living Situation: family Physical Exam-General - PHYSICAL EXAM-ADULT Initial Vital Signs Reviewed: Yes (Febrile, tachycardic and tachypneic) - CONSTITUTIONAL General Appearance: appears well, alert, no apparent distress, obese, other (mumbles somewhat) - EYES Eyes: PERRL/EOMI, pink conjunctivae - HEAD, EARS, NOSE, MOUTH & THROAT HENMT: normocephalic/atraumatic, moist mucous membranes, normal ENT inspection, pharynx normal - NECK Neck: non-tender, full range of motion, supple - RESPIRATORY Respiratory: chest non-tender, no pleuratic chest pain, no respiratory distress, no accessory muscle use, decreased breath sounds, wheezing (expiratory, mild) - CARDIOVASCULAR Cardiovascular: normal peripheral pulses, regular rate, rhythm, no edema, no gallop, no JVD, no murmur, tachycardia - GASTROINTESTINAL (ABDOMEN) Abdominal Exam: normal bowel sounds, soft, no organomegaly, no pulsatile mass, tenderness (suprapubic) - LYMPHATIC Lymphatic: no adenopathy - MUSCULOSKELETAL Back Exam: normal inspection, no vertebral tenderness. 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, grossly normal, no motor/sensory deficits - PSYCHIATRIC Psych/Mental Status: normal mood/affect, normal thought content, normal thought process, anxious, other (a little confused) Progress - PLAN OF CARE/RESULTS Progress/Plan/Lab Results: Vital Signs - 8 hr 01/26/19 05:06 01/26/19 06:38 01/26/19 07:37 Temperature 103.1 F H 100.1 F H Pulse Rate 112 H 96 H 104 H Respiratory Rate 20 18 24 Blood Pressure 108/55 95/43 O2 Sat by Pulse Oximetry 92 L 98 94 L Laboratory Results - last 24 hr 01/26/19 01/26/19 01/26/19 05:50 05:50 05:50 WBC 14.87 H RBC 4.91 Hgb 14.0 Hct 41.4 MCV 84.3 MCH 28.5 MCHC 33.8 RDW Std Deviation 15.4 H Plt Count 258 MPV 9.4 Immature Gran % (Auto) 0.5 Neut % (Auto) 86.8 H Lymph % (Auto) 5.[address] % (Auto) 6.5 Eos % (Auto) 0.7 Baso % (Auto) 0.1 Immature Gran # (Auto) 0.08 H Neut # (Auto) 12.90 H Lymph # (Auto) 0.[address] [place] # (Auto) 0.96 H Eos # (Auto) 0.11 Baso # (Auto) 0.02 Segmented Neutrophils 86 H Band Neutrophils 5 H Lymphocytes 6 L Monocytes 2 Eosinophils 1 PT INR PTT (Actin FS) Specimen Type Sample Site pH pCO2 pO2 HCO3 Base Excess Oxyhemoglobin ABG O2 Sat (Calculated) ABG O2 Saturation ABG Carboxyhemoglobin ABG Methemoglobin Ron Test A-a O2 Difference Total Hemoglobin Lactate Liter Flow Blood Gas Modality FiO2 % Sodium 137 Potassium 4.3 Chloride 97 L Carbon Dioxide 25 Anion Gap 15 BUN 17 Creatinine 1.0 H Estimated GFR/1.73 m2 57 BUN/Creatinine Ratio 17 Glucose 250 H POC Glucose Calculated Osmolality 284 Calcium 9.1 Total Bilirubin 0.50 AST 26 ALT 20 Alkaline Phosphatase 65 Creatine Kinase 67 Troponin T Total Protein 6.4 Albumin 4.0 Globulin 2.0 Albumin/Globulin Ratio 2.0 Plasma Lactate 3.4 H Urine Source Urine Color Urine Clarity Urine pH Ur Specific [place] Urine Protein Urine Ketones Urine Blood Urine Nitrite Urine Bilirubin Urine Urobilinogen Urine Microscopic RBC Urine WBC Urine Microscopic WBC Ur Epithelial Cells Urine Glucose Acetone Level NEGATIVE 01/26/19 01/26/19 01/26/19 05:50 05:50 06:22 WBC RBC Hgb Hct MCV MCH MCHC RDW Std Deviation Plt Count MPV Immature Gran % (Auto) Neut % (Auto) Lymph % (Auto) [facility] [place] % (Auto) Eos % (Auto) Baso % (Auto) Immature Gran # (Auto) Neut # (Auto) Lymph # (Auto) [facility] [place] # (Auto) Eos # (Auto) Baso # (Auto) Segmented Neutrophils Band Neutrophils Lymphocytes Monocytes Eosinophils PT 13.8 INR 1.01 PTT (Actin FS) 28.6 Specimen Type ARTERIAL Sample Site L RADIAL pH 7.44 pCO2 38 pO2 68 HCO3 26.1 H Base Excess 1.7 Oxyhemoglobin 93.2 L ABG O2 Sat (Calculated) 18.6 ABG O2 Saturation 96.8 ABG Carboxyhemoglobin 2.40 ABG Methemoglobin 1.4 Ron Test YES A-a O2 Difference 84.0 Total Hemoglobin 14.2 Lactate 3.00 H Liter Flow 2.0 Blood Gas Modality CANNULA FiO2 % 28.0 Sodium Potassium Chloride Carbon Dioxide Anion Gap BUN Creatinine Estimated GFR/1.73 m2 BUN/Creatinine Ratio Glucose POC Glucose Calculated Osmolality Calcium Total Bilirubin AST ALT Alkaline Phosphatase Creatine Kinase Troponin T < 0.010 Total Protein Albumin Globulin Albumin/Globulin Ratio Plasma Lactate Urine Source Urine Color Urine Clarity Urine pH Ur Specific [place] Urine Protein Urine Ketones Urine Blood Urine Nitrite Urine Bilirubin Urine Urobilinogen Urine Microscopic RBC Urine WBC Urine Microscopic WBC Ur Epithelial Cells Urine Glucose Acetone Level 01/26/19 01/26/19 06:26 07:05 WBC RBC Hgb Hct MCV MCH MCHC RDW Std Deviation Plt Count MPV Immature Gran % (Auto) Neut % (Auto) Lymph % (Auto) [facility] [place] % (Auto) Eos % (Auto) Baso % (Auto) Immature Gran # (Auto) Neut # (Auto) Lymph # (Auto) [facility] [place] # (Auto) Eos # (Auto) Baso # (Auto) Segmented Neutrophils Band Neutrophils Lymphocytes Monocytes Eosinophils PT INR PTT (Actin FS) Specimen Type Sample Site pH pCO2 pO2 HCO3 Base Excess Oxyhemoglobin ABG O2 Sat (Calculated) ABG O2 Saturation ABG Carboxyhemoglobin ABG Methemoglobin Ron Test A-a O2 Difference Total Hemoglobin Lactate Liter Flow Blood Gas Modality FiO2 % Sodium Potassium Chloride Carbon Dioxide Anion Gap BUN Creatinine Estimated GFR/1.73 m2 BUN/Creatinine Ratio Glucose POC Glucose 213 H Calculated Osmolality Calcium Total Bilirubin AST ALT Alkaline Phosphatase Creatine Kinase Troponin T Total Protein Albumin Globulin Albumin/Globulin Ratio Plasma Lactate Urine Source CATH Urine Color YELLOW Urine Clarity CLEAR Urine pH 5.0 Ur Specific [place] 1.010 Urine Protein TRACE A Urine Ketones 1+(Small) A Urine Blood NEGATIVE Urine Nitrite NEGATIVE Urine Bilirubin NEGATIVE Urine Urobilinogen NORMAL Urine Microscopic RBC Not Reportable Urine WBC 1+ A Urine Microscopic WBC 10-20 A Ur Epithelial Cells <10 Urine Glucose 2+(250 mg/dL) A Acetone Level Orders Category Date Time Status Cardiac Monitoring DIRECTED Care 01/26/19 05:22 Active Finger Stick Blood Sugar (ED) DIRECTED Care 01/26/19 05:46 Active IV Insertion ORDERED Care 01/26/19 05:22 Completed Nursing- Obtain EKG once Care 01/26/19 05:24 Active Straight Catheterization ORDERED Care 01/26/19 05:37 Active CHEST-1 VIEW [RAD] Stat Exams 01/26/19 05:22 Completed ABG [RESP] Routine Lab 01/26/19 06:22 Completed ACETONE SERUM [CHEM] Stat Lab 01/26/19 05:50 Completed BLOOD CULTURE [BLDCUL] Stat Lab 01/26/19 06:00 Received CBC WITH DIFF [HEME] Stat Lab 01/26/19 05:50 Completed CK PROFILE [SP CHEM] Stat Lab 01/26/19 05:50 Completed COMPREHENSIVE METABOLIC PANEL [CHEM] Stat Lab 01/26/19 05:50 Completed LACTATE, PLASMA [CHEM] Lab 01/26/19 11:30 Uncollected LACTATE, PLASMA [CHEM] Q3H Lab 01/26/19 05:50 Completed PROTIME WITH INR [COAG] Stat Lab 01/26/19 05:50 Completed PTT [COAG] Stat Lab 01/26/19 05:50 Completed TROPONIN T Stat Lab 01/26/19 05:[address] W/POSS RFLX CULT [URINALYSIS] Stat Lab 01/26/19 07:05 Completed 0.9% Sodium Chloride Inj [Ns] 1,000 ml Med 01/26/19 05:23 Discontinued IV 999 mls/hr 0.9% Sodium Chloride Inj [Ns] 1,000 ml Med 01/26/19 05:45 Discontinued IV 999 mls/hr Acetaminophen [Tylenol] Med 01/26/19 05:23 Discontinued 1,000 mg PO NOW ONE Albuterol 2.5MG/Ipratrop 0.5MG [Duoneb (A & A)] Med 01/26/19 05:46 Discontinued 3 ml INH NOW ONE CefTRIAXONE [Rocephin] 1 gm Med 01/26/19 05:45 Discontinued 0.9% Sodium Chloride Inj [Ns] 50 ml IV NOW Morphine Med 01/26/19 05:45 Discontinued 2 mg IV NOW ONE Ondansetron [Zofran] Med 01/26/19 05:45 Discontinued 4 mg IV NOW ONE Piperacillin/Tazobactam [Zosyn] 4.5 gm Med 01/26/19 06:24 Discontinued 0.9% Sodium Chloride Inj [Ns] 100 ml IV NOW Vancomycin 1 gm/Ns Med 01/26/19 05:45 Discontinued 1 gm in 250 ml IV NOW Aerosol Treatments Routine Oth 01/26/19 05:46 Active Aerosol Treatments Stat Oth 01/26/19 05:46 Active Oxygen Device Stat Oth 01/26/19 05:22 Completed EKG [EKG] Stat Ther 01/26/19 05:24 Ordered Result Diagrams: 01/26/19 05:50 01/26/19 05:50 - REASSESSMENT Reassessment #1 Time Reassessed: 06:25 Status: improving (Given IVF, morphine/zofran for pain, po tylenol for fever. IV Vanco/Zosyn for sepsis d/t pneumonia (had originally ordered Rocephin d/t probably UTI)) Reassessment #2 Status: worsening (BP down to 73/, now 89 with almost 2 liter NS infused.zosyn and vanc are in . LA 3.o, 103 fever,hr 114 inital . bi basilar pneumonia, possible UTI not in DKA.) - EKG 1 Time of EKG reading by physician:: : EKG Read and Signed by:: David Kim EKG Interpretation (*Must complete 3 of following elements*): Abnormal Rate: 107 Rhythm: NSR Nunnelly: normal QRS: poor R wave progression RI Interval: normal ST Wave: normal Prior EKG Comparison: unchanged from prior - XRAY 1 XRAY Study: Chest Impression: Abnormal, See EMR Report (EXAM: CHEST-1 VIEW HISTORY: fever TECHNIQUE: Portable chest single view COMPARISON: 01/01/2019 FINDINGS: The lungs are well expanded. The heart is not enlarged. The vessels are not distended. The interstitial markings are actually less prominent than they were on the prior exam. However, there are mild increased interstitial markings in the lung bases. No consolidation. No effusion identified. IMPRESSION: Likely small basilar infiltrates. Electronically signed by Julián Sheets 01/26/2019 6:21 AM 01/26/19620 Interpreting Physician: Julián Sheets MD Dictated Date/Time: 01/26/1920 cc: David Kim MD; aJzmyn Trivedi) - CONSULTS/PCP/HOSPITALIST Notification #1 *Consult/PCP/Hospitalist*: dR CRAMER Time Discussed: :19 Consult Disposition: Admit (ICU) - CHANGE OF SHIFT REPORT (ED Provider) 1 Report Given and Care Transferred to:: Andre Time of Transfer: 07:00 Items Pending: Labs Departure - Departure Date of Disposition Decision: 01/26/19 Time of Disposition Decision: 08:18 DIAGNOSIS: Pneumonia, Sepsis, DM type 2 (diabetes mellitus, type 2) Disposition: ADMITTED INPATIENT 09 Certified Medical Emergency: Emergent Condition: Fair Referrals and Follow-Ups: Farooq,Jazmyn A., ACID RETORT OPERATOR [Primary Care Provider] - - Critical Care Note This patient required my direct & personal management of CC.: Yes Total Time (mins): 35 Critical Care Statement: This patient required my direct personal management to treat or rule out processes, the absence of which, could potentiallly result in sudden, clinically significant life or limb threatening deterioration. Attestation - Physician/ DEBBIE Attestation Patient care was provided by Advanced Practice Provider:: No The physician spent face to face time with patient:: Yes Advanced Practice Provider documentation review:: Supervising physician onsite and consulted in the evaluation and care of this patient. The physician did have a face to face encounter with the patient.
--- NOTE | 2019-01-26 06:23 | Diag Imaging Result Doc PS360 ---
EXAM: CHEST-1 VIEW HISTORY: fever TECHNIQUE: Portable chest single view COMPARISON: 01/01/2019 FINDINGS: The lungs are well expanded. The heart is not enlarged. The vessels are not distended. The interstitial markings are actually less prominent than they were on the prior exam. However, there are mild increased interstitial markings in the lung bases. No consolidation. No effusion identified. IMPRESSION: Likely small basilar infiltrates. Electronically signed by Julián Sheets 01/26/2019 6:21 AM
[2019-01-26] MEDS ORDERED: ZOSYN 4.5 GM in NS 100 ML IV ONE (06:24)
[2019-01-26 06:34] LABS: BASO# 0.02 X1000 (0.0-0.2); BASO% 0.1 % (0.0-0.8); EOS# 0.11 X1000 (0.0-0.7); EOS% 0.7 % (0.0-10.0); HEMATOCRIT 41.4 % (37.0-47.0); IMM GRAN# 0.08 X1000 (0.0-0.04); IMM GRAN% 0.5 % (0.0-0.5); LYMPH% 5.4 % (20.5-51.1); MCH 28.5 PG (27-31); MCHC 33.8 g/dL (33-37); MCV 84.3 FL (81-99); MONO# 0.96 X1000 (0.11-0.59); MONO% 6.5 % (1.7-9.3); MPV 9.4 FL (7.4-10.4); NEUT% 86.8 % (42.2-75.2); PLT 258 X1000 (130-400); RBC 4.91 XMIL (4.2-5.4); RDW 15.4 % (11.5-14.5); WBC 14.87 X1000 (4.8-10.8)
[2019-01-26 06:38] LABS: ACETONE SERUM NEGATIVE (NEGATIVE)
[2019-01-26 06:41] LABS: BE 1.7 mmoll (-3.0-3.0); BLOOD TYPE ARTERIAL; HCO3-(ACT) 26.1 mmoll (20.0-26.0); METHB 1.4 % (0.0-1.5); O2(CT) 18.6 mL/dL (15.0-23.0); O2HB 93.2 % (95.0-99.0); PCO2(98.6) 38 mmHg (35-45); PO2(98.6) 68 mmHg (60-100); SAMPLE BLOOD; SAO2 96.8 % (95.0-100.0); THB 14.2 g/dL (11.5-17.4); pH(98.6) 7.44 (7.35-7.45)
[2019-01-26 06:43] LABS: ALLEN TEST YES; MODALITY CANNULA
[2019-01-26 06:45] LABS: AGAP 15; ALKALINE PHOSPHATASE 65 U/L (32-104); BUN 17 mg/dL (8-22); CALCIUM 9.1 mg/dL (8.8-10.2); CHLORIDE 97 mmol/L (98-107); CK PROFILE 67 U/L (24-173); COSMO 284; ESTIMATED GFR 57; GLUCOSE 250 mg/dL (70-104); GOT 26 U/L (10-30); GPT 20 U/L (10-36); INR 1.01; POTASSIUM 4.3 mmol/L (3.5-5.1); PROTIME 13.8 Seconds (11.0-16.0); SODIUM 137 mmol/L (136-145); TCO2 25 mmol/L (25-35); TOTAL PROTEIN 6.4 g/dL (6.3-8.3)
[2019-01-26 06:46] LABS: PTT 28.6 Seconds (22.3-41.8)
[2019-01-26 07:17] LABS: BANDS 5 % (0-1); EOS 1 % (1-10); LYMPHS 6 % (21-51); MONO 2 % (1-9); SEGS 86 % (42-75)
[2019-01-26 07:42] LABS: BILIRUBIN URINE NEGATIVE (NEGATIVE); BLOOD URINE NEGATIVE (NEGATIVE); CLARITY CLEAR (CLEAR); COLOR YELLOW; KETONE URINE 1+(Small) mg/dL (NEGATIVE); LEUKOCYTES URINE 1+ (NEGATIVE); NITRITE URINE NEGATIVE (NEGATIVE); PROTEIN URINE TRACE mg/dL (NEGATIVE); UROBILINOGEN URINE NORMAL
[2019-01-26 07:43] LABS: URINE EPITHELIAL CELLS <10 /HPF (<10); URINE SOURCE CATH
[2019-01-26] MEDS ORDERED: LR 1,000 ML IV ONE (08:19)
--- NOTE | 2019-01-26 08:56 | EKG Report ---
Test Performed on : 01/26/2019 06:13:02 AM Test Reason : sob Blood Pressure : / mmHG Vent. Rate : 107 BPM Atrial Rate : 107 BPM P-R Int : 150 ms QRS Dur : 080 ms QT Int : 332 ms P-R-T Axes : 044 -20 060 degrees QTc Int : 443 ms Sinus tachycardia. Possible Anterior infarct , age undetermined Abnormal ECG When compared with ECG of 01-JAN-2019 13:58, (Unconfirmed) No significant change was found Unconfirmed Result
[2019-01-26] MEDS ORDERED: NORCO-10 PO ONE (10:28)
[2019-01-26] MEDS ORDERED: ZITHROMAX 500 MG/NS 500 MG/250 ML IVPB IV SCH (11:15)
--- NOTE | 2019-01-26 11:41 | HISTORY AND PHYSICAL ---
PRIMARY CARE PROVIDER: WANDA Madsen CHIEF COMPLAINT: Fever, chills, and altered mental status that began 1 hour prior to arriving today. HISTORY OF PRESENTING ILLNESS: This is a 58-year-old female, who presents to [facility] ER with complaints of fever, chills, and altered mental status that began approximately 1 hour prior to arriving. She is noted to have had a recent UTI requiring 2 rounds of antibiotics this month already. She was also admitted to the hospital approximately 1 month ago for a congestive heart failure exacerbation. When she arrived to the emergency room, she had a temperature of 103.1 degrees and was saturating 92% on room air. Her white blood cell count was 14.87, her plasma lactate was 3.4, and her heart rate was 112. Her chest x-ray showed likely small basilar infiltrates so she is being admitted to the intensive care unit for further evaluation and treatment. PAST MEDICAL HISTORY: Diabetes type 2, COPD, dyslipidemia, anxiety and depression, GERD, hypertension, hypertriglyceridemia, peripheral neuropathy, and congestive heart failure. PAST SURGICAL HISTORY: A neck/back surgery, tonsillectomy and adenoidectomy, cholecystectomy, and left shoulder surgery. FAMILY HISTORY: Her dad had hypertension, coronary artery disease, and lung cancer. Her mom had coronary artery disease. Her daughter had ovarian cancer and is . Sister had breast cancer, and she also had another brother and sister that had COPD, who are both . SOCIAL HISTORY: She currently lives with her . Was a 9-ofpq-o-day smoker for 10 years and then decreased to 1 pack a day for 20 years and has been quit now for 6 years. Denies any alcohol or illicit drug use. ALLERGIES: Doxycycline, nitrofurantoin, and NSAIDs. HOME MEDICATIONS: We need to obtain a current list, reconcile review, and restart as appropriate. We will place an order for Nursing to update and confirm home medications. DIAGNOSTIC STUDIES: Laboratory data showed a white blood cell count of 14.87, hemoglobin 14, hematocrit 41.4, platelets 258,000. PT 13.8, INR 1.01. ABG with a pH of 7.44, pCO2 of 38, PO2 of 68, bicarbonate 26.1, and this was on 2 L via nasal cannula. Sodium 137, potassium 4.3, chloride 97, CO2 of 25, BUN of 17, creatinine of 1, glucose of 250. Cardiac enzyme was negative plasma lactate of 3.4. Urinalysis is negative. Acetone level was negative. Chest x-ray showed likely small basilar infiltrates. EKG showed sinus tachycardia at 107. REVIEW OF SYSTEMS: She was positive for fever, chills. Denied any blurred vision or dizziness. She did have some confusion prior to arriving, but she is alert and oriented x3 at this time. She has had shortness of breath, lower abdominal pain, but no nausea/vomiting, constipation, diarrhea, or burning or hurting with urination. PHYSICAL EXAMINATION: VITAL SIGNS: On arrival she had a temperature of 103.1 degrees, a pulse of 112, respirations 20, blood pressure 108/55, saturating 92% on room air. Currently, her temperature is 98.9 degrees, she is saturating 93% on 2 L. GENERAL: This is a 58-year-old morbidly obese female, who is sitting up in a chair, but answers questions appropriately. HEMNT: Normocephalic, atraumatic. Normal ENT inspection. Oropharynx and nares are clear. EYES: Pupils are equal, round, and reactive to light and accommodation. Extraocular movements are intact. NECK: Normal inspection. Normal range of motion. LUNGS: With decreased breath sounds and some mild expiratory wheezing. HEART: Regular rate and rhythm. No murmurs, rubs, or gallops. ABDOMEN: Soft with tenderness to the suprapubic area. Bowel sounds are present x4 quadrants. MUSCULOSKELETAL: She has 5/5 strength x4 extremities. NEUROLOGICAL: The cranial nerves 2-12 appear grossly intact. ASSESSMENT: 1. Sepsis. 2. Bilateral lower lobe pneumonia. 3. Leukocytosis. 4. Diabetes, type 2. 5. History of congestive heart failure. No exacerbation at this time. PLAN: She is being admitted to the intensive care unit, placed on telemetry O2 per protocol DuoNeb q.4 hours, Rocephin 1 gram IV q.24 h., azithromycin 500 IV q.24 h. We will need to update and confirm home medications as previously stated. Incentive spirometry. Apply SCDs for DVT prophylaxis. We will recheck a CBC, BMP in the a.m. Further orders after seen by attending. Dictated by WANDA Wolff for Osvaldo Serrato MD cc: WANDA Madsen CRNP Gregory S. Cheatham, MD
[2019-01-26] MEDS ORDERED: DOPAMINE 800 MG/D5W 800 MG/250 ML IV.SOLN IV SCH (12:00)
[2019-01-26] MEDS: DUONEB (A & A) INH SCH ×4 (12:07→22:55)
[2019-01-26] MEDS: NS 1,000 ML IV SCH (12:08)
[2019-01-26] MEDS ORDERED: VENTOLIN HFA INH PRN (14:08)
[2019-01-26] MEDS: PRILOSEC PO SCH (14:55)
[2019-01-26] MEDS: ASPIRIN PO SCH (14:55)
[2019-01-26] MEDS: ZITHROMAX 500 MG/NS 500 MG/250 ML IVPB IV SCH (15:00)
[2019-01-26] MEDS ORDERED: ZANAFLEX PO SCH (17:00)
[2019-01-26] MEDS: OFIRMEV 1000 MG/ISOTONIC SOLN 1,000 MG/100 ML BOTTLE IV PRN (17:13)
[2019-01-26] MEDS: NEURONTIN PO SCH (17:13)
[2019-01-26] MEDS ORDERED: VANCOMYCIN IV PER PHARMACY MISC SCH (17:15)
[2019-01-26] MEDS: VANCOMYCIN 2,000 MG in NS 500 ML IV SCH (18:42)
[2019-01-26 19:55] LABS: BILIRUBIN URINE NEGATIVE (NEGATIVE); BLOOD URINE TRACE (NEGATIVE); KETONE URINE TRACE mg/dL (NEGATIVE); LEUKOCYTES URINE TRACE (NEGATIVE); NITRITE URINE NEGATIVE (NEGATIVE); PH URINE 6.5; PROTEIN URINE TRACE mg/dL (NEGATIVE); UROBILINOGEN URINE NORMAL
[2019-01-26 19:56] LABS: CLARITY CLEAR (CLEAR); COLOR YELLOW; URINE SOURCE CATH
[2019-01-26 19:58] LABS: URINE BACTERIA NEGATIVE /HFP; URINE CAST NONE SEEN /LPF; URINE CRYSTAL NONE SEEN /HPF; URINE EPITHELIAL CELLS <10 /HPF (<10); URINE RBC <10 /HPF (<10); URINE WBC <10 /HPF (<10); URINE YEAST NONE SEEN /HPF
[2019-01-26] MEDS: LEVOPHED 8 MG in D5 1/2 NS 250 ML IV SCH (20:25)
--- NOTE | 2019-01-26 20:56 | CARDIOLOGY CONSULTATION ---
DATE: 01/26/2019 IMPRESSION: 1. Fever, chills, and leukocytosis suggesting acute infectious process. She does manifest cellulitis over her left hip area, which just started. 2. Episodic chest tightness, which may radiate to her jaw. Symptoms suspicious for angina, but pattern does not appear to be unstable. 3. Type 2 diabetes mellitus for approximately 15 years. 4. Previous chronic cigarette use, discontinued about 6 years ago. 5. Chronic obstructive pulmonary disease. 6. Hyperlipidemia, mixed. 7. Hypertension. 8. Morbid obesity. RECOMMENDATIONS: 1. Agree with treating for acute infectious process with broad antibiotics including anti- staphylococcal coverage given that she has what appears to be a cellulitis in the setting of diabetes mellitus. Pneumonia is not entirely excluded as well. 2. Agree with intravenous hydration and use of intravenous pressor agents as required. Would favor utilizing Levophed rather than dopamine to avoid excess tachycardia. 3. Continue aspirin daily. 4. Followup cardiac enzymes. 5. Echocardiography. 6. Once acute infectious process has cleared, patient will likely benefit from invasive evaluation with cardiac catheterization/coronary angiography given the suggestive nature of her symptoms in the setting of multiple coronary risk factors. HISTORY: This 58-year-old, white female, with past history of obesity, type 2 diabetes mellitus, chronic cigarette use, discontinued 6 years ago; COPD, hypertension, mixed hyperlipidemia, and hypertension, was admitted to the emergency room early this morning with acute febrile illness. She is suspected of having pneumonia and cellulitis. She has been started on broad-spectrum antibiotics including anti-staphylococcal coverage, as well as intravenous fluids and pressors as needed. While in the intensive care unit, she reported some chest tightness with radiation to her jaw. This did not persist and a followup ECG showed no acute change. For this reason, Cardiology was consulted. She relates that she has been having episodes of chest tightness with radiation to the jaw with little provocation and episodes may last 5 or 10 minutes. She relates that episodes might occur once or 3 times a week in the past, but seem to be occurring with increased frequency over the last several weeks. In the last 24 hours, she developed fever and chills. She describes shaking chills. She denies cough or dysuria. There has been no abdominal pain or diarrhea. She has history of previous cholecystectomy. She does have a tender rash over her left hip area that is new. PAST MEDICAL HISTORY: 1. Obesity. 2. Type 2 diabetes mellitus. 3. Mixed hyperlipidemia. 4. COPD. 5. Hypertension. 6. Peripheral neuropathy. 7. Gastroesophageal reflux disease. PAST SURGICAL HISTORY: Includes unspecified neck surgery, unspecified back surgery, tonsillectomy and adenoidectomy, cholecystectomy, and unspecified left shoulder surgery. ALLERGIES: She is allergic or intolerant of doxycycline, nitrofurantoin, and nonsteroidal anti- inflammatory medications. MEDICATIONS PRIOR TO ADMISSION: As listed. She has been on aspirin chronically. SOCIAL HISTORY: She is and lives with her . She previously smoked 3 packs of cigarettes per day, but discontinued this about 6 years ago. She does not use alcohol. She previously smoked 3 packs of cigarettes per day for about 10 years and then decreased this to 1 pack of cigarettes per day for the subsequent 20 years. She discontinued cigarette use altogether approximately 6 years ago. She does not use alcohol. FAMILY HISTORY: Positive for hypertension, coronary artery disease, and lung cancer. There is also a family history of ovarian cancer. There is also a family history of breast cancer. REVIEW OF SYSTEMS: Pulmonary: Negative for cough or sputum production. There has been no orthopnea. Gastrointestinal: Noteworthy for gastroesophageal reflux disease symptoms. Constitutional: Noteworthy for fever and chills, but otherwise negative. Remaining review of systems negative/noncontributory with 14-total systems reviewed. PHYSICAL EXAMINATION: An obese, middle-aged female, in no distress, on supplemental oxygen. Blood pressure 127/48, heart rate 100, oxygen saturation 97% on supplemental oxygen. Weight 304 pounds.HEENT: Extraocular movements appear intact. Mucous membranes are moist. The patient is edentulous. Neck: Supple without discernible jugular venous distention. There are no carotid bruits. Auscultation of the chest reveals a few faint expiratory wheezes bilaterally. No rales could be appreciated. Abdomen: Soft. Bowel sounds are normal. Extremities: Without edema. skin: An area of erythema and mild induration over left hip area, which is tender to palpation. Appearance is suggestive of cellulitis. Neurologic: Alert and fully oriented. Speech is fluent. She moves all 4 extremities equally well. Psychiatric: Mood is appropriate. DIAGNOSTIC DATA: A 12-lead EKG demonstrates sinus rhythm and delayed precordial R-wave progression. LABORATORY DATA: Includes a white blood cell count of 14.87, hematocrit 41.4, hemoglobin 14.0, platelet count 258,000. Sodium 137, potassium 4.3, chloride 97, carbon dioxide 25, BUN 17, creatinine 1.0, glucose 250. Troponin T less than 0.01. CPK 76. Bilirubin 0.5. Urinalysis benign. Chest x-ray was reviewed. Heart does not appear to be enlarged. There does not appear to be any definite acute infiltrate. cc: Zeferino Mustafa MD
[2019-01-26] MEDS ORDERED: GLUCOPHAGE PO SCH (21:00)
[2019-01-26 21:09] LABS: AGAP 13; BUN 11 mg/dL (8-22); CHLORIDE 102 mmol/L (98-107); COSMO 285; CREATININE 0.8 mg/dL (0.5-0.9); ESTIMATED GFR > 60; GLUCOSE 282 mg/dL (70-104); POTASSIUM 3.8 mmol/L (3.5-5.1); SODIUM 138 mmol/L (136-145); TCO2 23 mmol/L (25-35)
[2019-01-26] MEDS: PAXIL PO SCH (21:19)
[2019-01-26] MEDS: HUMALOG (PARKWAY) SUBQ SCH (21:19)
[2019-01-26] MEDS: ELAVIL PO SCH (21:19)
[2019-01-26] MEDS: ANTIVERT PO SCH (21:19)
--- NOTE | 2019-01-26 21:48 | HISTORY AND PHYSICAL ---
ADDENDUM: Patient seen and examined by myself. Full note dictated and discussed with nurse practitioner. Patient will be admitted to the hospital with sepsis, bilateral pneumonia, diabetes. We will place her in the ICU due to low blood pressures and we will follow. Place her on antibiotics. Further orders as needed. cc: Osvaldo Serrato MD
--- NOTE | 2019-01-26 21:56 | Diag Imaging Result Doc PS360 ---
CHEST-PORTABLE - 01/26/2019 INDICATION: fever,chills, leukocytosis, hypoxemia COMPARISON: 6:11 AM FINDINGS: There are slight worsening interstitial infiltrates bilaterally with faint curly B lines. Heart size is top normal. Pulmonary vascularity is distended. No pneumothorax or pleural effusion. IMPRESSION: Worsening bilateral interstitial infiltrates, the appearance suggests pulmonary edema. Electronically signed by Victorino Butt 01/26/2019 9:53 PM
[2019-01-27] MEDS: DUONEB (A & A) INH SCH ×6 (03:20→22:32)
[2019-01-27] MEDS: PRILOSEC PO SCH (06:14)
[2019-01-27] MEDS: VANCOMYCIN 2,000 MG in NS 500 ML IV SCH ×2 (06:15→18:45)
[2019-01-27] MEDS: NS 1,000 ML IV SCH (06:22)
[2019-01-27] MEDS: HUMALOG (PARKWAY) SUBQ SCH ×4 (06:22→20:29)
[2019-01-27] MEDS: TYLENOL PO PRN ×2 (06:26→15:24)
[2019-01-27 06:53] LABS: AGAP 12; BUN 9 mg/dL (8-22); CALCIUM 7.9 mg/dL (8.8-10.2); CHLORIDE 106 mmol/L (98-107); COSMO 290; CREATININE 0.7 mg/dL (0.5-0.9); ESTIMATED GFR > 60; GLUCOSE 240 mg/dL (70-104); POTASSIUM 4.4 mmol/L (3.5-5.1); SODIUM 142 mmol/L (136-145); TCO2 24 mmol/L (25-35)
[2019-01-27] MEDS: GLUCOPHAGE PO SCH ×2 (07:35→16:12)
[2019-01-27] MEDS: ZANAFLEX PO PRN ×2 (07:36→20:26)
[2019-01-27] MEDS: NON-FORMULARY BULK MED INH SCH (07:39)
[2019-01-27 08:15] LABS: BASO# 0.01 X1000 (0.0-0.2); BASO% 0.1 % (0.0-0.8); EOS# 0.06 X1000 (0.0-0.7); EOS% 0.6 % (0.0-10.0); HEMATOCRIT 37.3 % (37.0-47.0); HEMOGLOBIN 11.7 g/dL (12.0-16.0); IMM GRAN# 0.01 X1000 (0.0-0.04); IMM GRAN% 0.1 % (0.0-0.5); LYMPH# 1.15 X1000 (1.2-3.4); LYMPH% 11.6 % (20.5-51.1); MCH 27.5 PG (27-31); MCHC 31.4 g/dL (33-37); MCV 87.6 FL (81-99); MONO# 0.68 X1000 (0.11-0.59); MONO% 6.9 % (1.7-9.3); MPV 9.6 FL (7.4-10.4); NEUT# 7.99 X1000 (1.4-6.5); NEUT% 80.7 % (42.2-75.2); PLT 227 X1000 (130-400); RBC 4.26 XMIL (4.2-5.4); RDW 15.8 % (11.5-14.5)
[2019-01-27] MEDS: VITAMIN D PO SCH (09:22)
[2019-01-27] MEDS: ROCEPHIN 1 GM in NS 50 ML IV SCH (09:22)
[2019-01-27] MEDS: GLUCOTROL XL PO SCH (09:22)
[2019-01-27] MEDS: ASPIRIN PO SCH (09:22)
[2019-01-27] MEDS: NEURONTIN PO SCH ×3 (09:22→16:12)
[2019-01-27] MEDS: TRICOR PO SCH (09:22)
--- NOTE | 2019-01-27 13:58 | EKG Report ---
Test Performed on : 01/26/2019 3:13:10 PM Test Reason : CHEST PAIN Blood Pressure : / mmHG Vent. Rate : 103 BPM Atrial Rate : 103 BPM P-R Int : 162 ms QRS Dur : 080 ms QT Int : 346 ms P-R-T Axes : 044 -19 060 degrees QTc Int : 453 ms Sinus tachycardia. Otherwise normal ECG When compared with ECG of 26-JAN-2019 06:13, (Unconfirmed) No significant change was found Unconfirmed Result
[2019-01-27] MEDS: LEVOPHED 8 MG in D5 1/2 NS 250 ML IV SCH (14:34)
[2019-01-27] MEDS: ZITHROMAX 500 MG/NS 500 MG/250 ML IVPB IV SCH (15:25)
[2019-01-27] MEDS ORDERED: ZOFRAN IV PRN (16:05)
[2019-01-27] MEDS ORDERED: LASIX IV ONE (16:06)
[2019-01-27] MEDS: ANTIVERT PO SCH (20:26)
[2019-01-27] MEDS: PAXIL PO SCH (20:26)
[2019-01-27] MEDS: ELAVIL PO SCH (20:26)
--- NOTE | 2019-01-28 00:21 | PROGRESS NOTE ---
DATE: 01/27/2019 SUBJECTIVE: Patient had a 105 fever yesterday. Since then, she has actually been afebrile. She states that she is feeling a lot better this morning. She is actually asking to restart her pain medication and her Xanax. PHYSICAL EXAMINATION: Vital Signs: Reviewed. She is still on pressors to keep her blood pressure around 100 systolic. Otherwise, she has been afebrile for the past 18 hours with a temperature max yesterday at 105. Pulse is regular. Respiratory 20. HEENT: Normocephalic. Neck: Supple. Cardiovascular: Regular rate. Chest: Clear. Abdomen: Soft. Extremities: Moves all extremities. Neurologic: No changes. ASSESSMENT: 1. Sepsis. 2. Bilateral pneumonia. 3. Hypotension requiring pressors. 4. Chronic pain. 5. Chronic anxiety. 6. Leukocytosis. 7. Diabetes. PLAN: Discussed with patient that at this point we really do not need to restart her Xanax or her Dickinson as each of these will drop her blood pressure. We are going to continue to try to wean down her Levophed. Hopefully, this will be able to wean off soon. Otherwise, patient is in no current distress. She appears much improved from yesterday's exam. We are going to continue antibiotics, supportive care and we will follow. cc: Osvaldo Serrato MD
[2019-01-28] MEDS: DUONEB (A & A) INH SCH ×6 (03:14→22:59)
[2019-01-28] MEDS: ZANAFLEX PO PRN (04:57)
[2019-01-28] MEDS: VANCOMYCIN 2,000 MG in NS 500 ML IV SCH (05:01)
[2019-01-28] MEDS: HUMALOG (PARKWAY) SUBQ SCH ×4 (05:15→20:54)
[2019-01-28] MEDS: PRILOSEC PO SCH (06:10)
[2019-01-28] MEDS: NON-FORMULARY BULK MED INH SCH (08:15)
[2019-01-28] MEDS: ASPIRIN PO SCH (08:33)
[2019-01-28] MEDS: GLUCOTROL XL PO SCH (08:33)
[2019-01-28] MEDS: NEURONTIN PO SCH ×3 (08:33→16:25)
[2019-01-28] MEDS: VITAMIN D PO SCH (08:34)
[2019-01-28] MEDS: ROCEPHIN 1 GM in NS 50 ML IV SCH (08:34)
[2019-01-28] MEDS: GLUCOPHAGE PO SCH ×2 (08:34→16:25)
[2019-01-28] MEDS: TRICOR PO SCH (08:34)
[2019-01-28] MEDS: NORCO-10 PO PRN ×2 (11:06→20:29)
[2019-01-28] MEDS: ZITHROMAX 500 MG/NS 500 MG/250 ML IVPB IV SCH (14:43)
--- NOTE | 2019-01-28 16:48 | PROGRESS NOTE ---
DATE: 01/28/2019 SUBJECTIVE: The patient notes that she is aching and hurting all over, but this is common for her. We have not restarted her Gipsy. Note she did not sleep well last night again, as she did not take her Xanax. Her blood pressures have still been low, and she is still requiring Levophed. Overall, she notes she feels a lot better than she did. PHYSICAL EXAMINATION: Vital Signs: Temperature 99 degrees, pulse 85, respiratory rate 18, BP 102/45. Currently on Levophed although down to 1 mcg a minute. HEENT: Normocephalic. Neck: Supple. Cardiovascular: Regular rate. Chest: Clear. Abdomen: Soft. Extremities: Moves all extremities. Neurologic: No changes. ASSESSMENT: 1. Nausea and vomiting. 2. Abdominal pain. 3. Myalgias. 4. Sepsis. 5. Bilateral lower lobe pneumonia. 6. Leukocytosis. 7. Hypotension currently on Levophed. PLAN: We are going to continue her on antibiotics. Hopefully, she can wean off her Levophed later on this afternoon. We are going to attempt to allow her to take half of her normal dose of Gipsy and see what this does for her blood pressure. Patient understands if blood pressure drops that she will have to stop Gipsy. We will continue to follow. Await culture and sensitivities. Further orders as needed. cc: Osvaldo Serrato MD
[2019-01-28] MEDS: OFIRMEV 1000 MG/ISOTONIC SOLN 1,000 MG/100 ML BOTTLE IV PRN (20:09)
[2019-01-28] MEDS: PAXIL PO SCH (20:10)
[2019-01-28] MEDS: ANTIVERT PO SCH (20:10)
[2019-01-28] MEDS: ELAVIL PO SCH (20:10)
[2019-01-28] MEDS: ATIVAN PO PRN (20:11)
--- NOTE | 2019-01-28 22:05 | ECHO REPORT ---
ORDER DATE: 01/27/2019 MEASUREMENTS: Septal thickness 0.7, left ventricular internal diameter diastole 5.0, posterior wall thickness 0.9. Left ventricular internal diameter in systole 3.4, aortic root 2.7, left atrium 4.1. SUMMARY: 1. Very difficult study for interpretation due to very limited acoustic window quality. Intravenous echo contrast agent Optison was utilized to enhance endocardial definition. 2. Aortic valve is without gross structural abnormality. Peak gradient across aortic valve is 13 mmHg. Mitral and tricuspid valves are without gross structural abnormality. Pulmonic valve not seen. The aortic root is normal in size. 3. Normal left ventricular dimensions demonstrated. Estimated left ejection fraction appears to be at least 65%. No regional wall motion abnormalities are evident. Left atrium, right atrium, right ventricle are grossly normal in size. 4. No pericardial effusion. 5. Inferior vena cava not well demonstrated. cc: Zeferino Mustafa MD
[2019-01-29] MEDS: DUONEB (A & A) INH SCH ×6 (02:52→22:59)
[2019-01-29] MEDS: PRILOSEC PO SCH (06:16)
[2019-01-29] MEDS: HUMALOG (PARKWAY) SUBQ SCH ×4 (06:51→20:22)
[2019-01-29] MEDS: NON-FORMULARY BULK MED INH SCH (07:47)
[2019-01-29] MEDS: VANCOMYCIN 1,500 MG in NS 250 ML IV SCH ×2 (08:00→20:07)
[2019-01-29] MEDS: NORCO-10 PO PRN ×2 (09:34→20:23)
[2019-01-29] MEDS: GLUCOPHAGE PO SCH ×2 (09:35→17:16)
[2019-01-29] MEDS: ASPIRIN PO SCH (09:35)
[2019-01-29] MEDS: VITAMIN D PO SCH (09:36)
[2019-01-29] MEDS: ROCEPHIN 1 GM in NS 50 ML IV SCH (09:36)
[2019-01-29] MEDS: GLUCOTROL XL PO SCH (09:36)
[2019-01-29] MEDS: NEURONTIN PO SCH ×3 (09:36→17:16)
[2019-01-29] MEDS: TRICOR PO SCH (09:36)
[2019-01-29] MEDS: ZITHROMAX 500 MG/NS 500 MG/250 ML IVPB IV SCH (17:17)
[2019-01-29] MEDS: ELAVIL PO SCH (20:22)
[2019-01-29] MEDS: ZANAFLEX PO PRN (20:23)
[2019-01-29] MEDS: PAXIL PO SCH (20:23)
[2019-01-29] MEDS: ANTIVERT PO SCH (22:00)
--- NOTE | 2019-01-29 22:22 | PROGRESS NOTE ---
DATE: 01/29/2019 SUBJECTIVE: Patient overall notes that she is feeling better. Still having lots of aches and pains. Denies any fevers or chills. Denies nausea or vomiting. PHYSICAL EXAMINATION: Vital signs: She is afebrile. Pulse in the 80s, respiratory 20, BP is improved to 105/59 without Levophed. HEENT: Normocephalic. Neck: Supple. Cardiovascular: Regular rate. Chest: Clear, nonlabored. Abdomen: Soft, nondistended. Extremities: Moves all extremities. ASSESSMENT: 1. Hypotension, improved. Currently off Levophed, but has not restarted her blood pressure medications and blood pressure is still low. 2. Sepsis. 3. Bilateral pneumonia. 4. Leukocytosis. 5. Diabetes. PLAN: We will continue patient in intensive care unit as her blood pressure continues to remain on the low side despite the fact that she has not restarted her blood pressure medications. We will continue to follow. cc: Osvaldo Serrato MD
[2019-01-30] MEDS: DUONEB (A & A) INH SCH ×6 (03:05→22:52)
[2019-01-30] MEDS: PRILOSEC PO SCH (06:03)
[2019-01-30] MEDS: HUMALOG (PARKWAY) SUBQ SCH ×3 (06:03→16:36)
[2019-01-30] MEDS: NON-FORMULARY BULK MED INH SCH (07:01)
[2019-01-30] MEDS: GLUCOPHAGE PO SCH ×2 (07:46→16:37)
[2019-01-30] MEDS: VANCOMYCIN 1,500 MG in NS 250 ML IV SCH ×2 (07:46→19:25)
[2019-01-30] MEDS: ROCEPHIN 1 GM in NS 50 ML IV SCH (09:42)
[2019-01-30] MEDS: NORCO-10 PO PRN ×2 (09:43→20:58)
[2019-01-30] MEDS: NEURONTIN PO SCH ×3 (09:43→16:36)
[2019-01-30] MEDS: VITAMIN D PO SCH (09:43)
[2019-01-30] MEDS: ASPIRIN PO SCH (09:43)
[2019-01-30] MEDS: GLUCOTROL XL PO SCH (09:43)
[2019-01-30] MEDS: TRICOR PO SCH (09:43)
[2019-01-30] MEDS: ZANAFLEX PO PRN ×2 (09:44→20:58)
[2019-01-30] MEDS: ZITHROMAX 500 MG/NS 500 MG/250 ML IVPB IV SCH (14:32)
--- NOTE | 2019-01-30 18:05 | PROGRESS NOTE ---
DATE: 01/30/2019 SUBJECTIVE: Patient notes that she is feeling a lot better. She is still having lots of aches and pains, but this is chronic and normal for her. Denies any fevers or chills. OBJECTIVE: Vital signs: Temperature 98, pulse 100, respiratory 20, BP 139/92. General: Patient is awake. She is in no respiratory distress. HEENT: Normocephalic. Neck: Supple. Cardiovascular: Regular rate. Chest: Clear. Abdomen: Soft. Extremities: Moves all extremities. Neurologic: No focal changes. ASSESSMENT: 1. Nausea and vomiting. 2. Abdominal pain. 3. Sepsis, appears resolved. 4. Hypotension, appears resolved. Blood pressures are elevated. 5. Bilateral lower lobe pneumonia. 6. Diabetes. PLAN: We will continue patient in the hospital. Continue current treatment. Hopefully she can transition to the floor later this afternoon. cc: Osvaldo Serrato MD
[2019-01-30] MEDS: ELAVIL PO SCH (20:57)
[2019-01-30] MEDS: ATIVAN PO PRN (20:58)
[2019-01-30] MEDS: PAXIL PO SCH (20:58)
[2019-01-30] MEDS: ANTIVERT PO SCH (20:58)
[2019-01-31] MEDS: DUONEB (A & A) INH SCH ×5 (03:04→20:10)
[2019-01-31] MEDS: HUMALOG (PARKWAY) SUBQ SCH ×5 (03:07→20:07)
[2019-01-31] MEDS: ZANAFLEX PO PRN ×2 (06:03→20:17)
[2019-01-31] MEDS: NORCO-10 PO PRN ×2 (06:03→20:17)
[2019-01-31] MEDS: PRILOSEC PO SCH (06:04)
[2019-01-31] MEDS: NON-FORMULARY BULK MED INH SCH (08:03)
[2019-01-31] MEDS: TRICOR PO SCH (09:02)
[2019-01-31] MEDS: GLUCOTROL XL PO SCH (09:02)
[2019-01-31] MEDS: ASPIRIN PO SCH (09:03)
[2019-01-31] MEDS: ROCEPHIN 1 GM in NS 50 ML IV SCH (09:03)
[2019-01-31] MEDS: VANCOMYCIN 1,750 MG in NS 250 ML IV SCH ×2 (09:03→20:02)
[2019-01-31] MEDS: VITAMIN D PO SCH (09:03)
[2019-01-31] MEDS: NEURONTIN PO SCH ×3 (09:03→17:01)
[2019-01-31] MEDS: GLUCOPHAGE PO SCH ×2 (09:22→17:01)
[2019-01-31] MEDS: ZITHROMAX 500 MG/NS 500 MG/250 ML IVPB IV SCH (14:41)
[2019-01-31] MEDS: PAXIL PO SCH (20:03)
[2019-01-31] MEDS: ANTIVERT PO SCH (20:03)
[2019-01-31] MEDS: ELAVIL PO SCH (20:03)
--- NOTE | 2019-01-31 21:31 | PROGRESS NOTE ---
DATE: 01/31/2019 SUBJECTIVE: Patient notes she feels a lot better. She denies any fevers, chills, cough, congestion, and her shortness of breath is improved. She is still very tired and fatigued, although she has not really been out of bed since admission. OBJECTIVE: Vital Signs: Temperature 98, pulse 94, respiratory rate 18, BP 124/64. She did have one low blood pressure last night, but this may not have been an accurate reading. HEENT: Normocephalic. Neck: Supple. Cardiovascular: Regular rate. Chest: Clear, nonlabored. Abdomen: Soft, nondistended, obese. Extremities: Moves all extremities. Neurologic: No changes. ASSESSMENT: 1. Sepsis, appears resolved. 2. Bilateral pneumonia. 3. Leukocytosis. 4. Diabetes. 5. Hypotension, appears resolved. 6. History of congestive heart failure. PLAN: We are going to continue patient in the hospital, transition her to the floor. Hopefully, she can start ambulating once she gets to the floor. We will get physical therapy involved. We will attempt to get her Rodriges removed. Further orders as needed. cc: Osvaldo Serrato MD
[2019-02-01] MEDS: DUONEB (A & A) INH SCH ×7 (00:21→23:36)
[2019-02-01] MEDS: PRILOSEC PO SCH (06:09)
[2019-02-01] MEDS: HUMALOG (PARKWAY) SUBQ SCH ×4 (06:12→21:38)
[2019-02-01] MEDS: NON-FORMULARY BULK MED INH SCH (07:26)
[2019-02-01] MEDS: TRICOR PO SCH (08:49)
[2019-02-01] MEDS: VITAMIN D PO SCH (08:49)
[2019-02-01] MEDS: ZANAFLEX PO PRN ×2 (08:49→20:46)
[2019-02-01] MEDS: NORCO-10 PO PRN ×2 (08:49→20:46)
[2019-02-01] MEDS: NEURONTIN PO SCH ×3 (08:50→16:46)
[2019-02-01] MEDS: ROCEPHIN 1 GM in NS 50 ML IV SCH (08:50)
[2019-02-01] MEDS: GLUCOPHAGE PO SCH ×2 (08:50→16:47)
[2019-02-01] MEDS: GLUCOTROL XL PO SCH (08:50)
[2019-02-01] MEDS: ASPIRIN PO SCH (08:50)
[2019-02-01] MEDS ORDERED: TUCKS PADS TOP PRN (12:50)
[2019-02-01] MEDS ORDERED: CALMOSEPTINE OINTMENT TOP PRN (14:52)
[2019-02-01] MEDS: ELAVIL PO SCH (20:45)
[2019-02-01] MEDS: ANTIVERT PO SCH (20:45)
[2019-02-01] MEDS: PAXIL PO SCH (20:46)
[2019-02-01] MEDS ORDERED: ZITHROMAX PO SCH (21:00)
[2019-02-01] MEDS: ATIVAN PO PRN (22:53)
[2019-02-02] MEDS: DUONEB (A & A) INH SCH ×3 (03:31→11:09)
[2019-02-02] MEDS: NORCO-10 PO PRN (06:41)
[2019-02-02] MEDS: PRILOSEC PO SCH (06:41)
[2019-02-02] MEDS: HUMALOG (PARKWAY) SUBQ SCH ×2 (06:42→11:14)
[2019-02-02 07:16] VITALS: BP 150/80
[2019-02-02] MEDS: NON-FORMULARY BULK MED INH SCH (08:00)
--- NOTE | 2019-02-02 08:39 | PROGRESS NOTE ---
DATE: 01/31/2019 SUBJECTIVE: Patient notes that she feels fine and would like to go home. However, when questioned, she notes she is a little tired and having difficulty getting out of bed. She thinks she would be able to get out of bed better at home than she is able to in a hospital bed. OBJECTIVE: Temperature 98, pulse 94, respiratory rate 18, BP 124/64.General: Patient is an awake, obese female, with currently no respiratory distress. Very pleasant. She is alert and oriented. HEENT: Normocephalic. Neck: Supple. Cardiovascular: Regular rate. Chest: Clear. Abdomen: Soft. Extremities: Moves all extremities. ASSESSMENT: 1. Adult failure to thrive with generalized weakness. Discussed with patient that it would be more difficult to get out of a flat bed than to raise herself to a normal seated position. Discussed that if she is having that great of difficulty getting out of the hospital bed, we certainly should not go home at this point. 2. Sepsis, resolved. 3. Hypotension, resolved. 4. Bilateral lower lobe pneumonia. 5. Diabetes. PLAN: We will continue patient in the hospital, continue to follow. Further orders as needed. Continue physical therapy. We will discontinue her Rodriges and follow. cc: Osvaldo Serrato MD
[2019-02-02] MEDS ORDERED: PRINIVIL PO SCH (09:00)
[2019-02-02] MEDS: GLUCOPHAGE PO SCH (09:33)
[2019-02-02] MEDS: TRICOR PO SCH (09:33)
[2019-02-02] MEDS: VITAMIN D PO SCH (09:33)
[2019-02-02] MEDS: NEURONTIN PO SCH ×2 (09:34→14:17)
[2019-02-02] MEDS: ASPIRIN PO SCH (09:34)
[2019-02-02] MEDS: GLUCOTROL XL PO SCH (09:34)
[2019-02-02] MEDS: ROCEPHIN 1 GM in NS 50 ML IV SCH (09:36)
--- NOTE | 2019-02-02 19:08 | DISCHARGE SUMMARY ---
ADMISSION DATE: 01/26/2019 DISCHARGE DATE: 02/02/2019 ADDENDUM REPORT The patient was seen and examined. She notes that she is feeling much better. She is much more strong. She still has some weakness but feels as though she is capable of caring for herself at home. She was admitted with sepsis and diagnosed bilateral lower lobe pneumonia and placed on antibiotics. She was on pressors for short period of time. Thankfully, she has weaned off all that. She is on p.o. antibiotics. Therefore, we will discharge her home. cc: Osvaldo Serrato MD
--- NOTE | 2019-02-10 08:25 | DISCHARGE SUMMARY ---
ADMISSION DATE: 01/26/2019 DISCHARGE DATE: 02/02/2019 DISCHARGE DIAGNOSES: 1. Sepsis. 2. Bilateral lower lobe pneumonia, improved. 3. Leukocytosis, resolved. 4. Diabetes type 2. 5. Generalized weakness with adult failure to thrive. 6. Hypertension. 7. Congestive heart failure. CONSULTATIONS: None. PROCEDURES: None. BRIEF HOSPITAL COURSE: The patient is a 58-year-old female who presented to the hospital and subsequently diagnosed with bilateral lower lobe pneumonia causing sepsis. She was admitted due to hypotension, placed on pressors, antibiotics, IV fluids, oxygen. Thankfully over the next day, she continued to improve. Her blood pressures improved. She was transitioned onto floor. She continued on oxygen. Continues to have some generalized weakness, requiring assistance to get out of bed. This improved and the patient was able to be discharged home. On discharge, she is awake and alert. She is in no respiratory distress. Her breathing has improved. She is still generally weak but overall is much better. DISPOSITION: Patient will be discharged home. DISCHARGE INSTRUCTIONS: She will follow up outpatient with treatment facility of choice. She will continue antibiotics for 5 more days at home. Again discussed with patient the perils of smoking as well as ways to stop. No other changes were made in her chronic home medications. cc: Osvaldo Serrato MD [facility]
== END 2019-02-02 12:25 | disposition home or self-care (01) | DRG 871 ==
LOC: P.ED 04:55 → P.ICU 10:41 → P.MEDSURG 01-31 11:57
PROVIDERS: ATTEND Family Medicine